=== PATIENT | female | born 2005 | race Hispanic/Latino ===

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

== ENCOUNTER 2023-01-22 18:22 | Emergency (ER) | payer OTHER, MEDICAID, SELFPAY ==
[2023-01-22 18:26] VITALS: BP 135/78; PULSE 65; RESP 16; TEMP 36.6; O2SAT 99; BMI 38.6
--- NOTE | 2023-01-22 21:32 | ED.FEMALEGU ---
HPI - Female Genitourinary General Chief complaint: Urogenital-Female Stated complaint: Poss bladder inf Time Seen by Provider: 01/22/23 19:53 Source: patient Mode of arrival: Ambulatory History of Present Illness HPI Narrative: 17-year-old female without significant medical history presents with a chief complaint of dysuria, frequency and urgency since yesterday. She has some low back pain today. She denies any fever or chills nor nausea or vomiting. She has no vaginal bleeding or discharge. She is had urinary tract infections in the past and feels like this is the same Related Data Previous Rx's Medication Instructions Recorded albuterol sulfate 90 mcg/actuation 2 puff INH Q4HP PRN #1 ea 08/22/17 aerosol inhaler (Ventolin HFA) dextroamphetamine-amphetamine ER 30 mg PO DAILY #30 caps 03/11/18 30 mg 24hr capsule,extend release (Adderall XR) cephalexin 500 mg capsule 500 mg PO Q6H 7 days #28 caps 01/22/23 Allergies Allergy/AdvReac Type Severity Reaction Status Date / Time No Known Drug Allergies Allergy Verified 01/22/23 22:29 Review of Systems Review of Systems Narrative: GENERAL: Denies chills, fatigue, malaise, fever, sweats. HEENT: Denies sinus pain, ear pain, sore throat, difficulty swallowing, dizziness. RESPIRATORY: Denies dyspnea, cough, wheezing, hemoptysis, sputum. CARDIOVASCULAR: Denies chest pain, palpitations, orthopnea, edema, GASTROINTESTINAL: Denies nausea, vomiting, abdominal pain, diarrhea, constipation, melena. : See HPI MUSCULOSKELETAL: denies weakness, joint pain, or bony pain SKIN: Denies rash, skin lesions, or other NEUROLOGIC: Denies weakness, headache, numbness, change in speech, confusion, seizures, incoordination. PSYCHIATRIC: No concerning psychosocial issues. 12 point review of systems is negative except for those stated above Patient History Family History Brother Oppositional defiant disorder of childhood or adolescence ADHD Mother Obesity Anxiety Substance Use Type: marijuana Exam Narrative Exam Narrative: GEN: 17-year-old female AOx3 and in mild distress EYES: Pupils are equal, round, and reactive to light and accommodation. Extraoccular muscles are intact bilaterally. There is no subconjunctival hemorrhage or exudate. CHEST: Lungs are clear to auscultation bilaterally and free of wheezes, rales, or rhonchi. Heart rate is regular rhythm, there are no murmurs, clicks, rubs, or gallops. There is no chest wall tenderness. ABD: Abdomen is soft and nontender. There is no guarding or rebound. Bowel sounds are normal in all 4 quadrants. There is no mass or organomegaly. Mild left sided CVA tenderness EXT: Full painless ROM of all extremities with no loss of sensation or strength. SKIN: Warm, pink, and dry. No erythema or rash Initial Vital Signs Initial Vital Signs: Vital Signs Temperature 97.8 F 01/22/23 18:26 Pulse Rate 65 01/22/23 18:26 Respiratory Rate 16 01/22/23 18:26 Blood Pressure 135/78 01/22/23 18:26 Pulse Oximetry 99 01/22/23 18:26 Oxygen Delivery Method Room Air 01/22/23 18:26 Course Orders Ordered: ED Orders 01/22/23 21:30 Urine Culture Stat Urine Microscopic Stat Discontinued Medications Cefazolin Sodium (Cephalexin 250 Mg Cap Prepack) 1 bottle MISC SEEINSTR ONE Stop: 01/22/23 22:31 Last Admin: 01/22/23 22:50 Dose: 1 bottle Documented By: Ondansetron HCl (Ondansetron 4 Mg Odt Prepack) 1 bottle MISC SEEINSTR ONE Stop: 01/22/23 22:31 Last Admin: 01/22/23 22:50 Dose: 1 bottle Documented By: Vital Signs Vital signs: Vital Signs - 8 hr 01/22/23 22:04 Pulse Rate 55 L Respiratory Rate 16 Blood Pressure 119/67 Pulse Oximetry 100 Oxygen Delivery Method Room Air MDM - Female Genitourinary Lab Data Labs: Lab Results 01/22/23 Range/Units 21:30 Urine RBC None seen (0-5/HPF) Urine WBC 10-30/hpf H (0-5/HPF) Ur Squamous Epith Cells 0-1 /hpf (0-5/HPF) Urine Bacteria Many (>30) H (None) Urine Mucus 3+ H (Negative) Ur Culture Indicated? Specimen cultured Point of Care Testing Test Results Negative Urine Dip Bedside Urine Glucose Negative Bedside Urine Bilirubin - Negative Bedside Urine Ketone +/- 5 Urine Specific [place] 1.03 Bedside Urine Occult Blood - Negative Bedside Urine Protein + 30 Bedside Urine Urobilinogen - Negative Bedside Urine Nitrite + Positive Bedside Urine Leukocytes ++ 125 Esterase MDM Narrative Medical decision making narrative: 17-year-old female with dysuria, frequency and urgency and some low back pain has urine convincing for UTI. Other diagnoses considered including kidney stone versus PID versus other. She has no blood in her urine and the pain is not colicky in nature but persistent. She has no vaginal bleeding or discharge. Patient shows no signs of sepsis is generally well-appearing and appropriate for discharge. Questions have been answered to her apparent satisfaction and return precautions discussed including worsening pain, fever, shaking chills, vomiting or other concerning symptoms. Discharge Plan Departure Patient Disposition: Home Clinical Impression: UTI (urinary tract infection) Instructions: DI for Urinary Tract Infection (UTI) Activity Restrictions/Additional Instructions: *You have been diagnosed with [UTI ] *What to do: *Please continue to take your regular medications as directed. [x ] New medication prescriptions sent to your pharmacy: [[facility]] [ ] New medication written as a paper prescription [ ] No new medications given *Please follow up with your primary care provider in 2-3 days, call for an appointment. Let them know you were seen in the Emergency Department and that we ask that you be seen in follow up. We will electronically transmit a record of today's note if your PCP is in our system *If you do not have a primary care provider please contact the [facility] Resource line at [phone]. They will ask some questions about your medical history and help get you set up with a doctor in the community. *Return to Emergency Department if you should have any new, worsening or concerning symptoms, such as [fever greater than 101 F, shaking chills, worsening pain, persistent vomiting or other bothersome symptoms] Prescriptions: New cephalexin 500 mg capsule 500 mg PO Q6H 7 Days Qty: 28 0RF No Action albuterol sulfate [Ventolin HFA] 90 MCG/PUFF HFA aerosol inhaler 2 puff INH Q4HP PRNQty: 1 3RF dextroamphetamine-amphetamine [Adderall XR] 30 mg capsule,extended release 24hr 30 mg PO DAILY Qty: 30 0RF Referrals: Tammie Whitehead DO [Primary Care Provider] - Stand Alone Forms: Patient Portal/API
[2023-01-22 21:56] LABS: Bacteria Urine Many (>30); Culture Indicated Urine Specimen Cultured; Mucus Urine 3+ (Negative); RBC Urine None Seen (0-5/HPF); Squamous Epithelial Cell Urine 0-1 /HPF (0-5/HPF); WBC Urine 10-30/HPF (0-5/HPF)
[2023-01-22 22:04] VITALS: BP 119/67; PULSE 55; RESP 16; O2SAT 100
[2023-01-22] MEDS: ONDANSETRON 4 MG ODT PREPACK 1 BOTTLE MISC (22:50)
[2023-01-22] MEDS: cephALEXin 250 MG CAP PREPACK 1 BOTTLE MISC (22:50)
== END 2023-01-22 22:56 | disposition home or self-care (01) ==
PROVIDERS: Emergency Provider Emergency Medicine; PCP Family Medicine
DX: N39.0 Urinary tract infection, site not specified (principal)
CPT/HCPCS: 81003; 81015; 81025; 87077; 87086; 87186; 99282; 99283

== ENCOUNTER 2023-06-19 19:53 | Emergency (ER) | payer SELFPAY ==
[2023-06-19 19:56] VITALS: BP 127/68; PULSE 69; RESP 18; TEMP 36.8; O2SAT 99; BMI 36.9
[2023-06-19] MEDS: ONDANSETRON 4 MG ODT SL (20:02)
[2023-06-19 21:54] LABS: Bacteria Urine Occasional (0-1); Culture Indicated Urine Cult Not Indicated; Mucus Urine 4+ (Negative); RBC Urine None Seen (0-5/HPF); Squamous Epithelial Cell Urine 1-5 /HPF (0-5/HPF); WBC Urine 0-1/HPF (0-5/HPF)
--- NOTE | 2023-06-19 22:49 | ED.NAVMDI ---
HPI - Nausea/Vomiting/Diarrhea General Chief complaint: Nausea/Vomiting/Diarrhea Stated complaint: 8 weeks , unable to keep things down Time Seen by Provider: 06/19/23 22:32 Source: patient Mode of arrival: Ambulatory History of Present Illness HPI Narrative: 8 week young woman 18-year-old who comes to the ED with frequent nausea and vomiting. No abdominal pain, no dysuria urgency or frequency. No vaginal bleeding. No flank pain. Related Data Previous Rx's Medication Instructions Recorded albuterol sulfate 90 mcg/actuation 2 puff INH Q4HP PRN #1 ea 08/22/17 aerosol inhaler (Ventolin HFA) dextroamphetamine-amphetamine ER 30 mg PO DAILY #30 caps 03/11/18 30 mg 24hr capsule,extend release (Adderall XR) promethazine 25 mg rectal 25 mg NC Q6H PRN nausea and 06/19/23 suppository vomiting #10 ea promethazine 25 mg tablet 25 mg PO Q6H nausea and vomiting 06/19/23 #20 tabs Allergies Allergy/AdvReac Type Severity Reaction Status Date / Time No Known Drug Allergies Allergy Verified 06/19/23 19:56 Patient History Family History Brother Oppositional defiant disorder of childhood or adolescence ADHD Mother Obesity Anxiety Social History Smoking Status: Never smoker Smoking Status: Never smoker Substance Use Type: marijuana Exam Narrative Exam Narrative: GENERAL: Alert, cooperative and in no distress. HEAD: Atraumatic. Normocephalic. EYES: Sclera are clear without icterus. Extraocular movements are full. ENT: No rhinorrhea. Oropharynx is moist. Mouth exam is benign. NECK: Supple. Full range of motion. CARDIOVASCULAR: Normal rate and rhythm without murmur gallop or rub. RESPIRATORY: Clear to auscultation. Breath sounds equal bilaterally. No wheezes, rales, or rhonchi. GASTROINTESTINAL: Abdomen soft, non-tender, nondistended. EXTREMITIES: No edema, full range of motion. No obvious trauma. BACK: Normal inspection, no CVA tenderness. NEURO: Nonfocal examination, normal speech SKIN: No rash or erythema of visible areas PSYCH: Normally oriented. Normal range of affect. Appropriate behavior Initial Vital Signs Initial Vital Signs: Vital Signs Temperature 98.2 F 06/19/23 19:56 Pulse Rate 69 12/19/23 19:56 Respiratory Rate 18 06/19/23 19:56 Blood Pressure 127/68 06/19/23 19:56 Pulse Oximetry 99 06/19/23 19:56 Oxygen Delivery Method Room Air 06/19/23 19:56 Course Orders Ordered: ED Orders 06/19/23 21:14 Urine Microscopic Stat Ondansetron HCl (Ondansetron 4 Mg Odt) 4 mg SL NOW PRN PRN Reason: Nausea And Vomiting Last Admin: 06/19/23 20:02 Dose: 4 mg Documented By: HUNTER Ondansetron HCl (Ondansetron 4 Mg/2 Ml Inj) 4 mg IV NOW PRN PRN Reason: Nausea And Vomiting Discontinued Medications Promethazine HCl (Promethazine 25 Mg Supp) 25 mg NC NOW ONE Stop: 06/19/23 22:45 Vital Signs Vital signs: Vital Signs - 8 hr 06/19/23 19:56 Temperature 98.2 F Pulse Rate 69 Respiratory Rate 18 Blood Pressure 127/68 Pulse Oximetry 99 Oxygen Delivery Method Room Air MDM - Nausea/Vomiting/Diarrhea Lab Data Labs: Lab Results 06/19/23 Range/Units 21:14 Urine RBC None seen (0-5/HPF) Urine WBC 0-1/hpf (0-5/HPF) Ur Squamous Epith Cells 1-5 /hpf (0-5/HPF) Urine Bacteria Occasional (0-1) (None) Urine Mucus 4+ H (Negative) Ur Culture Indicated? Cult not indicated Point of Care Testing Test Results Positive Urine Dip Bedside Urine Glucose Negative Bedside Urine Bilirubin - Negative Bedside Urine Ketone ++ 40 Urine Specific [place] 1.005 Bedside Urine Occult Blood - Negative Bedside Urine pH 8.5 Bedside Urine Protein +/- 15 Bedside Urine Urobilinogen - Negative Bedside Urine Nitrite - Negative Bedside Urine Leukocytes - Negative Esterase MDM Narrative Medical decision making narrative: Patient appears well. I did do orthostatic vital signs at the bedside. Her resting heart rate was 60 and when I sitter at the bedside she was 78. She is moist mucous membranes and brisk capillary refill distally. She is mentating well. I do not think she needs IV fluids at the moment. Discharge Plan Departure Patient Disposition: Home Clinical Impression: Hyperemesis gravidarum Instructions: DI for Hyperemesis Gravidarum Activity Restrictions/Additional Instructions: Use promethazine 25 mg either orally or rectally every 6 hours as needed for nausea. Eat frequent high-protein meals that are very small particularly before you get out of the bed in the morning as this often helps. I recommend an electrolyte fluids such as a qt of water combined with a 1/2 tsp of sugar and a pinch of salt for hydration fluid I recommend small sips of fluid very frequently to keep yourself hydrated. Return to the ED if you think you are getting dangerously dehydrated or for other severe symptoms. Prescriptions: New promethazine 25 mg tablet 25 mg PO Q6H Qty: 20 0RF promethazine 25 mg suppository 25 mg NC Q6H PRN (Reason: nausea and vomiting) Qty: 10 0RF No Action albuterol sulfate [Ventolin HFA] 90 MCG/PUFF HFA aerosol inhaler 2 puff INH Q4HP PRNQty: 1 3RF dextroamphetamine-amphetamine [Adderall XR] 30 mg capsule,extended release 24hr 30 mg PO DAILY Qty: 30 0RF Referrals: Tammie Whitehead DO [Primary Care Provider] - Stand Alone Forms: Patient Portal/API
[2023-06-19] MEDS: PROMETHAZINE 25 MG SUPP PR (23:10)
[2023-06-19 23:15] VITALS: BP 119/56; PULSE 85; RESP 18; TEMP 37.2; O2SAT 99
== END 2023-06-19 23:15 | disposition home or self-care (01) ==
PROVIDERS: Emergency Provider Family Medicine Addiction Medicine; PCP Family Medicine
DX: O21.0 Mild hyperemesis gravidarum (principal); Z3A.08 8 weeks gestation of pregnancy
CPT/HCPCS: 81003; 81015; 81025; 99282; 99283

== ENCOUNTER 2023-06-29 13:28 | Emergency (ER) | payer OTHER, MEDICAID, SELFPAY ==
[2023-06-29 13:39] VITALS: BP 142/67; PULSE 70; RESP 14; TEMP 36.7; O2SAT 99; BMI 36.6
--- NOTE | 2023-06-29 14:04 | DI.US.S_ITS ---
PROCEDURE: US OB <= 14 WEEKS FETUS INDICATIONS: NAUSEA/VOMITING/DIARRHEA. UPPER ABDOMINAL PAIN BILATERAL RADIATING INTO MID PELVIS. OUTSIDE/PRIOR DATING DATA: Last menstrual period (LMP): 04/22/23 LMP-based estimated date of delivery (SHANTI): 01/27/24. First dating scan (date and location): This study. Estimated date of delivery (SHANTI) from first dating scan: 02/01/24. The calculations are made using the above SHANTI of 02/01/24. TECHNIQUE: Real-time scanning was performed of the fetus and maternal pelvic organs, with image documentation. Endovaginal scanning was also performed to better visualize the fetus and maternal ovaries. COMPARISON: None. FINDINGS: Embryo: Single living intrauterine gestation with heart rate 173 beats per minute, and a crown-rump length of 2.3 cm which correlates with a gestational age of 9 weeks 0 days, +/-5 days. A small presumed perigestational bleed is present measuring only 7 x 15 x 18 mm. Heart rate: 173 beats per minute Maternal organs: Ovaries normal considering gestational status. IMPRESSION: Single living intrauterine gestation with delivery date projected to be centered on 02/01/24, We strive to produce accurate, complete, and clear reports of imaging services. To assist us in improving patient care, this report was composed using standard report templates and voice recognition software. Therefore, it may contain abnormal punctuation, insertions and/or omissions. Occasional wrong-word or sound-alike substitutions may occur. Though we review the report and make efforts to correct it, we do recommend that the report be read carefully in proper context to recognize any text inaccuracies. Dictated by: Jose Perez M.D. on 06/29/2023 at 15:41 Approved by: Jose Perez M.D. on 06/29/2023 at 15:43
[2023-06-29 14:35] LABS: Add Manual Diff / Slide Review NO; Basophils Absolute Auto 0 /uL (0-100); Basophils Percent Auto 0.2 % (0-2); Eosinophils Absolute Auto 0 /uL (0-450); Eosinophils Percent Auto 0.2 % (2-4); Hematocrit 40.7 % (36-46); Hemoglobin 13.9 g/dL (12.0-16.0); Lymphocytes Absolute Auto 1000 /uL (1100-4500); Lymphocytes Percent Auto 5.8 % (25-40); Mean Corpuscular HGB Conc 34.1 % (30-36); Mean Corpuscular Hemoglobin 31.3 PG (26-34); Mean Corpuscular Volume 91.8 fL (80-100); Monocytes Absolute Auto 700 /uL (0-900); Monocytes Percent Auto 3.9 % (3-14); Neutrophils Absolute Auto 15400 /uL (1500-7000); Neutrophils Percent Auto 89.9 % (50-75); Platelet Count 244 X10^3/uL (150-400); Red Blood Cell Count 4.43 X10^6/uL (4.0-5.2); Red Cell Distribution Width 12.9 % (11.6-14.8); White Blood Cell Count 17.2 X10^3/uL (4.5-11.0)
[2023-06-29 14:52] LABS: Alanine Aminotransferase 18 IU/L (<35); Albumin 4.3 g/dL (3.5-5.0); Albumin Globulin Ratio 1.1 (1.0-2.8); Alkaline Phosphatase 68 U/L (38-126); Aspartate Aminotransferase 30 IU/L (14-36); BUN Creatinine Ratio 16.2 (6-22); Bilirubin Total 0.7 mg/dL (0.2-1.3); Blood Urea Nitrogen 6 mg/dL (7-17); Calcium 9.7 mg/dL (8.4-10.2); Carbon Dioxide 17 mmol/L (22-32); Chloride 106 mmol/L (98-107); Estimated Glomerular Filt Rate > 60 mL/min (>60); Globulin 3.8 g/dL (1.7-4.1); Glucose 92 mg/dL (70-100); Potassium 4.1 mmol/L (3.4-5.1); Sodium 133 mmol/L (137-145); Total Protein 8.1 g/dL (6.3-8.2)
--- NOTE | 2023-06-29 15:29 | ED_ITS ---
HPI - <Krystle Moise PA-C - Last Filed: 06/29/23 20:03> General Chief complaint: Abdominal Pain Stated complaint: Having cramping pain 9 weeks Time Seen by Provider: 06/29/23 15:21 Source: patient Mode of arrival: Ambulatory Limitations: no limitations History of Present Illness HPI Narrative: 18-year-old female 9 weeks LMP 04/22/23 presents with concern for intermittent upper abdominal pain. Patient states that since yesterday she has been having sharp intermittent pains that start up high in her abdomen under her ribs on both sides and has a sensation that they are shooting down the middle of her abdomen towards her pelvis. She says that these seem to last for a few seconds at a time usually not longer. She was dealing with pretty significant nausea and vomiting in her but this seemed to improve for about a week until a few days ago when she started having nausea and vomiting again. She states that this morning she started having diarrhea and has had 3 or 4 episodes of this with very loose and watery stool. She has not seen blood or mucus in it. She has been dealing with some nausea and difficulty keeping food or fluids down today she has had 2 episodes of vomiting. She has been able to take small sips of fluids and has been eating some crackers with success. She had 1 episode of vomiting when she 1st was in the waiting room in the emergency department. Other family members have had illness recently with vomiting and diarrhea in the last few days. She denies fevers, flank pain, urgency frequency burning with urination, persistent abdominal pain, pelvic pain, vaginal bleeding or any other symptoms. She states she had her 1st OB ultrasound last week and was told things looked okay with a HR in [id number]. Related Data Previous Rx's Medication Instructions Recorded albuterol sulfate 90 mcg/actuation 2 puff INH Q4HP PRN #1 ea 08/22/17 aerosol inhaler (Ventolin HFA) dextroamphetamine-amphetamine ER 30 mg PO DAILY #30 caps 03/11/18 30 mg 24hr capsule,extend release (Adderall XR) promethazine 25 mg rectal 25 mg KY Q6H PRN nausea and 06/19/23 suppository vomiting #10 ea promethazine 25 mg tablet 25 mg PO Q6H nausea and vomiting 06/19/23 #20 tabs promethazine 25 mg rectal 25 mg KY Q6H PRN nausea and 06/21/23 suppository vomiting #12 ea Allergies Allergy/AdvReac Type Severity Reaction Status Date / Time No Known Drug Allergies Allergy Verified 06/29/23 13:44 Review of Systems <Krystle Moise PA-C - Last Filed: 06/29/23 20:03> Review of Systems Narrative: See HPI Exam <Krystle Moise PA-C - Last Filed: 06/29/23 20:03> Narrative Exam Narrative: GENERAL: [18] year old patient appears stated age. Obese patient, in mild distress. HEAD: Atraumatic. Normocephalic. EYES: Pupils equal round and reactive. Extraocular motions intact. No scleral icterus. No injection or drainage. ENT: Nose without bleeding, purulent drainage. Airway patent. NECK: Trachea midline. Non tender CARDIOVASCULAR: Regular rate and rhythm without murmurs, gallops, or rubs. RESPIRATORY: Clear to auscultation. Breath sounds equal bilaterally. No wheezes, rales, or rhonchi. GASTROINTESTINAL: Abdomen soft, there is mild generalized upper abdominal tenderness bilaterally and of the epigastrum. Otherwise abdomen is non-tender, nondistended, negative caban's sign and rovsing, no mcburney's point tenderness or suprapubic tenderness. No CVA/flank tenderness. EXTREMITIES: No edema or joint tenderness. BACK: Nontender without deformity or crepitance. No flank tenderness. NEURO: AOx3. SKIN: No rash or erythema of visible areas Initial Vital Signs Initial Vital Signs: Vital Signs Temperature 98.0 F 06/29/23 13:39 Pulse Rate 70 06/29/23 13:39 Respiratory Rate 14 06/29/23 13:39 Blood Pressure 142/67 H 06/29/23 13:39 Pulse Oximetry 99 06/29/23 13:39 Oxygen Delivery Method Room Air 06/29/23 13:39 <Marily Michele MD - Last Filed: 07/01/23 02:37> Initial Vital Signs Initial Vital Signs: Vital Signs Temperature 98.0 F 06/29/23 13:39 Pulse Rate 70 06/29/23 13:39 Respiratory Rate 14 06/29/23 13:39 Blood Pressure 142/67 H 06/29/23 13:39 Pulse Oximetry 99 06/29/23 13:39 Oxygen Delivery Method Room Air 06/29/23 13:39 Course <Krystle Moise PA-C - Last Filed: 06/29/23 20:03> Course Course Narrative: Did call the patient and advise her the results of her viral panel which were negative. All questions answered. 1919 Orders Ordered: ED Orders 06/29/23 14:04 US OB <= 14 weeks fetus Stat 06/29/23 14:20 ABO RH Type Stat Complete Blood Count AUTO DIFF Stat Comprehensive Metabolic Panel Stat HCG Quantitative /Beta subunit Stat 06/29/23 15:50 Respiratory Panel (Film Array) Stat Vital Signs Vital signs: Vital Signs - 8 hr 06/29/23 13:39 06/29/23 16:01 06/29/23 17:32 Temperature 98.0 F 98.1 F 98.3 F Pulse Rate 70 77 83 Respiratory Rate 14 20 18 Blood Pressure 142/67 H 121/76 119/69 Pulse Oximetry 99 100 98 Oxygen Delivery Method Room Air Room Air Room Air <Marily Michele MD - Last Filed: 07/01/23 02:37> Orders Ordered: ED Orders 06/29/23 14:04 US OB <= 14 weeks fetus Stat 06/29/23 14:20 ABO RH Type Stat Complete Blood Count AUTO DIFF Stat Comprehensive Metabolic Panel Stat HCG Quantitative /Beta subunit Stat 06/29/23 15:50 Respiratory Panel (Film Array) Stat Vital Signs Vital signs: Vital Signs - 8 hr 06/29/23 13:39 06/29/23 16:01 06/29/23 17:32 Temperature 98.0 F 98.1 F 98.3 F Pulse Rate 70 77 83 Respiratory Rate 14 20 18 Blood Pressure 142/67 H 121/76 119/69 Pulse Oximetry 99 100 98 Oxygen Delivery Method Room Air Room Air Room Air MDM - OB/Uterine Contractions <Krystle Moise PA-C - Last Filed: 06/29/23 20:03> Differential Diagnosis Differential diagnosis: Likely other (round ligament pain, viral gastroenteritis, nausea and vomiting of , less likely appendicitis, cholelithiasis, biliary colic ) Medical Records Attestation: I reviewed the patient's medical records. Lab Data Attestation: I reviewed the patient's lab results. 06/29/23 14:20 06/29/23 14:20 Labs: Lab Results 06/29/23 06/29/23 Range/Units 14:20 15:50 WBC 17.2 H (4.5-11.0) X10^3/uL RBC 4.43 (4.0-5.2) X10^6/uL Hgb 13.9 (12.0-16.0) g/dL Hct 40.7 (36-46) % MCV 91.8 (80-100) fL MCH 31.3 (26-34) PG MCHC 34.1 (30-36) % RDW 12.9 (11.6-14.8) % Plt Count 244 (150-400) X10^3/uL Neut % (Auto) 89.9 H (50-75) % Lymph % (Auto) 5.8 L (25-40) % [place] % (Auto) 3.9 (3-14) % Eos % (Auto) 0.2 L (2-4) % Baso % (Auto) 0.2 (0-2) % Neut # (Auto) 82850 H (4050-4727) /uL Lymph # (Auto) 1000 L (2525-3147) /uL [place] # (Auto) 700 (0-900) /uL Eos # (Auto) 0 (0-450) /uL Baso # (Auto) 0 (0-100) /uL Sodium 133 L (137-145) mmol/L Potassium 4.1 (3.4-5.1) mmol/L Chloride 106 (98-107) mmol/L Carbon Dioxide 17 L (22-32) mmol/L BUN 6 L (7-17) mg/dL Creatinine 0.37 L (0.52-1.04) mg/dL Estimated GFR > 60 (>60) mL/min BUN/Creatinine Ratio 16.2 (6-22) Glucose 92 (70-100) mg/dL Calcium 9.7 (8.4-10.2) mg/dL Total Bilirubin 0.7 (0.2-1.3) mg/dL AST 30 (14-36) IU/L ALT 18 (<35) IU/L Alkaline Phosphatase 68 (38-126) U/L Total Protein 8.1 (6.3-8.2) g/dL Albumin 4.3 (3.5-5.0) g/dL Globulin 3.8 (1.7-4.1) g/dL Albumin/Globulin Ratio 1.1 (1.0-2.8) HCG, Quant 36345 mIU/mL Chlamy pneumoniae PCR Not detected (Not Detect) Adenovirus (PCR) Not detected (Not Detect) B.parapertussis DNA PCR Not detected (Not Detecte) Coronavirus OC43 (PCR) Not detected (Not Detect) Coronavirus HKU1 (PCR) Not detected (Not Detect) Coronavirus 229E (PCR) Not detected (Not Detect) SARS-CoV-2 (PCR) Not detected (Not Detecte) Coronavirus NL63 (PCR) Not detected (Not Detect) Human Metapneumovir PCR Not detected (Not Detect) Influenza Type A (PCR) Not detected (Not Detect) Influenza Type B (PCR) Not detected (Not Detect) M. pneumoniae (PCR) Not detected (Not Detect) Parainfluenza 1 (PCR) Not detected (Not Detect) Parainfluenza 2 (PCR) Not detected (Not Detect) Parainfluenza 3 (PCR) Not detected (Not Detect) Parainfluenza 4 (PCR) Not detected (Not Detect) RSV (PCR) Not detected (Not Detect) Entero/Rhino (PCR) Not detected (Not Detect) Blood Type O Positive Urine Dip Bedside Urine Glucose Negative Bedside Urine Bilirubin - Negative Bedside Urine Ketone +/- 5 Urine Specific [place] 1.025 Bedside Urine Occult Blood - Negative Bedside Urine pH 6.0 Bedside Urine Protein - Negative Bedside Urine Urobilinogen - Negative Bedside Urine Nitrite - Negative Bedside Urine Leukocytes - Negative Esterase Imaging Data US - OB: My Impression: Agree with Radiology interpretation Radiologist's Impression: [place] [id number] Ultrasound Report Signed Patient: Eufemia Betancourt MR#: [id number] : 2005 Acct:[id number] Age/Sex: 18 / F Date of Service: 06/29/23 Loc: ED Accession Number: [id number] Procedure: US OB <= 14 weeks fetus Ordering Provider: Marily Michele MD PROCEDURE: US OB <= 14 WEEKS FETUS INDICATIONS: NAUSEA/VOMITING/DIARRHEA. UPPER ABDOMINAL PAIN BILATERAL RADIATING INTO MID PELVIS. OUTSIDE/PRIOR DATING DATA: Last menstrual period (LMP): 04/22/23 LMP-based estimated date of delivery (SHANTI): 01/27/24. First dating scan (date and location): This study. Estimated date of delivery (SHANTI) from first dating scan: 02/01/24. The calculations are made using the above SHANTI of 02/01/24. TECHNIQUE: Real-time scanning was performed of the fetus and maternal pelvic organs, with image documentation. Endovaginal scanning was also performed to better visualize the fetus and maternal ovaries. COMPARISON: None. FINDINGS: Embryo: Single living intrauterine gestation with heart rate 173 beats per minute, and a crown-rump length of 2.3 cm which correlates with a gestational age of 9 weeks 0 days, +/-5 days. A small presumed perigestational bleed is present measuring only 7 x 15 x 18 mm. Heart rate: 173 beats per minute Maternal organs: Ovaries normal considering gestational status. IMPRESSION: Single living intrauterine gestation with delivery date projected to be centered on 02/01/24, We strive to produce accurate, complete, and clear reports of imaging services. To assist us in improving patient care, this report was composed using standard report templates and voice recognition software. Therefore, it may contain abnormal punctuation, insertions and/or omissions. Occasional wrong-word or sound-alike substitutions may occur. Though we review the report and make efforts to correct it, we do recommend that the report be read carefully in proper context to recognize any text inaccuracies. Dictated by: Jose Perez M.D. on 06/29/2023 at 15:41 Approved by: Jose Perez M.D. on 06/29/2023 at 15:43 Treatment and disposition Shared decision making:: Shared decision-making was used in determining plan for evaluation today in the emergency department and plan for outpatient follow- up/return precautions [facility] Narrative Medical decision making narrative: This is a well appearing 18yo F 9 weeks who presents with concern for upper mid abdominal pains in the last 24-48 hours lasting a few seconds at a time with some associated nausea and vomiting since yesterday and some diarrhea today, in the context of multiple family members having vomiting and diarrhea symptoms (3 loose stools today) recently. Patient had a ultrasound last week at her OB appointment which she reports was normal. Repeat ultrasound today shows a live fetus at 9 weeks with heart rate of 173, a small perigestational bleed approximately 1 x 1.5 cm. Patient's abdominal exam and exam of her flanks does not suggest pyelonephritis, appendicitis, cholelithiasis/gallbladder problem or other intra-abdominal or surgical pathology. Her labs are notable for leukocytosis to 17.2, however she has had vomiting recently and also is which certainly could account for this. Her vitals today are unremarkable she is afebrile. She was able to tolerate regular frequent sips of fluids and crackers while in the ER without any repeat episodes of vomiting or recurrence of pain. Hx is Fairly suspicious for a viral gastroenteritis, did discharge the patient prior to return of viral panel due to machine breakdown in the lab and expected delay in return of this result. Consulted/called the patient after she was discharged to share the results with her. Her viral panel was negative, and she was again counseled by phone to monitor carefully for any new or worsening symptoms particularly if she is developing a fever or has persistent diarrhea or worsening or persistent abdominal pain. Notably her abdominal pain symptoms were quite intermittent and lasting only for a few seconds, also bilateral and thus I strongly suspect they may be related to her , possibly round ligament pain. Patient's urine was unremarkable, and no suspicion for UTI based on this and based on exam. Her liver enzymes were not elevated and right upper quadrant ultrasound was not pursued. A pelvic exam was not performed as patient had no low abdominal/pelvic pain and no vaginal bleeding also with an live fetus on OB ultrasound at 9 weeks size which corresponds to [place]. HCG was within normal range for her stage of at just under 100,000. Patient was given strict return precautions for e.d. recheck, advised otherwise to have close follow-up with PCP/OB. All questions answered. <Marily Michele MD - Last Filed: 07/01/23 02:37> Lab Data Labs: Lab Results 06/29/23 06/29/23 Range/Units 14:20 15:50 WBC 17.2 H (4.5-11.0) X10^3/uL RBC 4.43 (4.0-5.2) X10^6/uL Hgb 13.9 (12.0-16.0) g/dL Hct 40.7 (36-46) % MCV 91.8 (80-100) fL MCH 31.3 (26-34) PG MCHC 34.1 (30-36) % RDW 12.9 (11.6-14.8) % Plt Count 244 (150-400) X10^3/uL Neut % (Auto) 89.9 H (50-75) % Lymph % (Auto) 5.8 L (25-40) % [place] % (Auto) 3.9 (3-14) % Eos % (Auto) 0.2 L (2-4) % Baso % (Auto) 0.2 (0-2) % Neut # (Auto) 97843 H (3403-0032) /uL Lymph # (Auto) 1000 L (1605-2681) /uL [place] # (Auto) 700 (0-900) /uL Eos # (Auto) 0 (0-450) /uL Baso # (Auto) 0 (0-100) /uL Sodium 133 L (137-145) mmol/L Potassium 4.1 (3.4-5.1) mmol/L Chloride 106 (98-107) mmol/L Carbon Dioxide 17 L (22-32) mmol/L BUN 6 L (7-17) mg/dL Creatinine 0.37 L (0.52-1.04) mg/dL Estimated GFR > 60 (>60) mL/min BUN/Creatinine Ratio 16.2 (6-22) Glucose 92 (70-100) mg/dL Calcium 9.7 (8.4-10.2) mg/dL Total Bilirubin 0.7 (0.2-1.3) mg/dL AST 30 (14-36) IU/L ALT 18 (<35) IU/L Alkaline Phosphatase 68 (38-126) U/L Total Protein 8.1 (6.3-8.2) g/dL Albumin 4.3 (3.5-5.0) g/dL Globulin 3.8 (1.7-4.1) g/dL Albumin/Globulin Ratio 1.1 (1.0-2.8) HCG, Quant 77193 mIU/mL Chlamy pneumoniae PCR Not detected (Not Detect) Adenovirus (PCR) Not detected (Not Detect) B.parapertussis DNA PCR Not detected (Not Detecte) Coronavirus OC43 (PCR) Not detected (Not Detect) Coronavirus HKU1 (PCR) Not detected (Not Detect) Coronavirus 229E (PCR) Not detected (Not Detect) SARS-CoV-2 (PCR) Not detected (Not Detecte) Coronavirus NL63 (PCR) Not detected (Not Detect) Human Metapneumovir PCR Not detected (Not Detect) Influenza Type A (PCR) Not detected (Not Detect) Influenza Type B (PCR) Not detected (Not Detect) M. pneumoniae (PCR) Not detected (Not Detect) Parainfluenza 1 (PCR) Not detected (Not Detect) Parainfluenza 2 (PCR) Not detected (Not Detect) Parainfluenza 3 (PCR) Not detected (Not Detect) Parainfluenza 4 (PCR) Not detected (Not Detect) RSV (PCR) Not detected (Not Detect) Entero/Rhino (PCR) Not detected (Not Detect) Blood Type O Positive Urine Dip Bedside Urine Glucose Negative Bedside Urine Bilirubin - Negative Bedside Urine Ketone +/- 5 Urine Specific [place] 1.025 Bedside Urine Occult Blood - Negative Bedside Urine pH 6.0 Bedside Urine Protein - Negative Bedside Urine Urobilinogen - Negative Bedside Urine Nitrite - Negative Bedside Urine Leukocytes - Negative Esterase Discharge Plan Departure Patient Disposition: Home Clinical Impression: Abdominal cramping affecting Nausea & vomiting Qualifiers: Vomiting type: unspecified Qualified Code(s): R11.2 - Nausea with vomiting, unspecified Diarrhea Qualifiers: Diarrhea type: unspecified type Qualified Code(s): R19.7 - Diarrhea, unspecified Activity Restrictions/Additional Instructions: *You have been diagnosed with [possible viral gastroenteritis] *What to do: *Please continue to take your regular medications as directed. [ ] New medication prescriptions sent to your pharmacy: [ ] [ ] New medication written as a paper prescription [X ] No new medications given *Please follow up with your primary care provider in 2-3 days, call for an appointment. Let them know you were seen in the Emergency Department and that we ask that you be seen in follow up. We will electronically transmit a record of today's note if your PCP is in our system. Your ultrasound today was looking okay, her baby's heart rate was at 173, you did have a small perigestational bleed about 1.5 cm x 8 mm. I do not think that this perigestational bleed explains your abdominal cramping and your other symptoms. Unfortunately our viral panel could not be completed during her emergency department stay as our machine is down and will not be up and running for another couple of hours. Based on your exam I am less suspicious for appendicitis or a gallbladder problem. I do think that you probably have a viral illness with your symptoms of vomiting and diarrhea today, given that other people in your home have had similar symptoms. Thankfully you have been able to keep some fluids down, you can continue to use the promethazine if needed, hydration is the most important thing but do eat what you can. It is okay to take popsicles, juices or electrolyte or Pedialyte solutions to make sure your staying hydrated but also plain water is good too. We are going to give you a call with the results once we receive them for your viral panel. Whether or not this shows something positive that could account for your symptoms it is very important that you carefully monitor your symptoms over the next 24-48 hours and if you develop fevers or have persistent diarrhea and vomiting or worsening or constant abdominal pains or develop vaginal bleeding or any other symptoms of concern please make sure that you seek re-evaluation, otherwise follow up with your primary care provider/OB provider. *If you do not have a primary care provider please contact the [facility] Resource line at [phone]. They will ask some questions about your medical history and help get you set up with a doctor in the community. *Return to Emergency Department if you should have any new, worsening or concerning symptoms, such as [fever greater than 101 F, shaking chills, worsening pain, persistent vomiting or other bothersome symptoms] Prescriptions: No Action albuterol sulfate [Ventolin HFA] 90 MCG/PUFF HFA aerosol inhaler 2 puff INH Q4HP PRNQty: 1 3RF dextroamphetamine-amphetamine [Adderall XR] 30 mg capsule,extended release 24hr 30 mg PO DAILY Qty: 30 0RF promethazine 25 mg tablet 25 mg PO Q6H Qty: 20 0RF promethazine 25 mg suppository 25 mg KY Q6H PRN (Reason: nausea and vomiting) Qty: 10 0RF promethazine 25 mg suppository 25 mg KY Q6H PRN (Reason: nausea and vomiting) Qty: 12 0RF Stand Alone Forms: Patient Portal/API ED Sign-out <Marily Michele MD - Last Filed: 07/01/23 02:37> Cosign ED Attending Cosignature Attestation: I was immediately available in the department for consultation throughout this patient's visit. Marily Michele MD
[2023-06-29 15:46] LABS: HEMOLYSIS 62 (0-50)
[2023-06-29 16:01] VITALS: BP 121/76; PULSE 77; RESP 20; TEMP 36.7; O2SAT 100
[2023-06-29 17:32] VITALS: BP 119/69; PULSE 83; RESP 18; TEMP 36.8; O2SAT 98
[2023-06-29 18:14] LABS: Adenovirus Not Detected (Not Detect); B. parapertussis Not Detected (Not Detecte); Bordetella pertussis Not Detected (Not Detect); Chlamydophila pneumoniae Not Detected (Not Detect); Coronavirus 229E Not Detected (Not Detect); Coronavirus HKU1 Not Detected (Not Detect); Coronavirus NL 63 Not Detected (Not Detect); Coronavirus OC43 Not Detected (Not Detect); Human Metapneumovirus Not Detected (Not Detect); Human Rhinovirus/Enterovirus Not Detected (Not Detect); Influenza A Not Detected (Not Detect); Influenza B Not Detected (Not Detect); Mycoplasma pneumoniae Not Detected (Not Detect); Parainfluenza Virus 1 Not Detected (Not Detect); Parainfluenza Virus 2 Not Detected (Not Detect); Parainfluenza Virus 3 Not Detected (Not Detect); Parainfluenza Virus 4 Not Detected (Not Detect); Respiratory Syncytial Virus Not Detected (Not Detect); SARS- CoV-2 Not Detected (Not Detecte)
== END 2023-06-29 17:34 | disposition home or self-care (01) ==
PROVIDERS: Emergency Medicine; Emergency Provider Student in an Organized Health Care Education/Training Program
DX: O21.9 Vomiting of pregnancy, unspecified (principal); R10.10 Upper abdominal pain, unspecified; R19.7 Diarrhea, unspecified; Z3A.09 9 weeks gestation of pregnancy; Z20.822 Contact with and (suspected) exposure to COVID-19
CPT/HCPCS: 36415; 76801; 76817; 80053; 81003; 84702; 85025; 86900; 86901; 87633; 99284

== ENCOUNTER → 2023-07-31 11:12 | Outpatient (CLI) | payer OTHER, MEDICAID, SELFPAY ==
[2023-07-31 12:00] LABS: Add Manual Diff / Slide Review NO; Basophils Absolute Auto 0 /uL (0-100); Basophils Percent Auto 0.3 % (0-2); Eosinophils Absolute Auto 100 /uL (0-450); Eosinophils Percent Auto 0.6 % (2-4); Hematocrit 39.2 % (36-46); Hemoglobin 13.7 g/dL (12.0-16.0); Lymphocytes Absolute Auto 1700 /uL (1100-4500); Lymphocytes Percent Auto 15.9 % (25-40); Mean Corpuscular HGB Conc 35.1 % (30-36); Mean Corpuscular Hemoglobin 31.5 PG (26-34); Mean Corpuscular Volume 89.8 fL (80-100); Monocytes Absolute Auto 600 /uL (0-900); Monocytes Percent Auto 5.4 % (3-14); Neutrophils Absolute Auto 8200 /uL (1500-7000); Neutrophils Percent Auto 77.8 % (50-75); Platelet Count 278 X10^3/uL (150-400); Red Blood Cell Count 4.36 X10^6/uL (4.0-5.2); Red Cell Distribution Width 13.3 % (11.6-14.8); White Blood Cell Count 10.5 X10^3/uL (4.5-11.0)
[2023-07-31 12:20] LABS: Iron 145 ug/dL (37-170)
[2023-07-31 12:22] LABS: Appearance Urine UA CLEAR; Bilirubin Urine UA NEGATIVE (NEGATIVE); Color Urine UA YELLOW; Glucose Urine UA NEGATIVE (Negative); Ketones Urine UA TRACE (NEGATIVE); Leukocyte Esterase Urine UA NEGATIVE (NEGATIVE); Nitrite Urine UA NEGATIVE (Negative); Occult Blood Urine UA NEGATIVE (Negative); Protein Urine UA NEGATIVE (Negative)
[2023-07-31 12:23] LABS: pH Urine UA 5.5 (4.5-8.0)
[2023-07-31 12:52] LABS: Hepatitis B Surface Antigen NEGATIVE s/c (NEGATIVE); Rubella Antibody IgG 4.1 IU/mL (>15)
[2023-07-31 12:55] LABS: Ferritin 39 ng/mL (6-137)
[2023-07-31 13:06] LABS: HIV 1 & 2 Ab/Ag 4th Gen Combo NEGATIVE (NEGATIVE); Hep C Virus Ab w/Reflex Quant NEGATIVE s/c (NEGATIVE)
[2023-07-31 13:45] LABS: Urine Chlamydia NOT DETECTED; Urine N gonorrhoeae NOT DETECTED
[2023-08-01 05:31] LABS: RPR Screen Non Reactive (Non Reactive)
[2023-08-01 11:13] LABS: Varicella IgG Antibody 1129 index (Immune >165)
== END ==
PROVIDERS: Referring Provider Family Medicine; Visit Provider Family Medicine
DX: Z34.01 Encounter for supervision of normal first pregnancy, first trimester (principal); D64.9 Anemia, unspecified
CPT/HCPCS: 36415; 80055; 81003; 82728; 83540; 86787; 86803; 86850; 86900; 86901; 87086; 87389; 87491; 87591

== ENCOUNTER → 2023-08-07 09:54 | Outpatient (CLI) | payer OTHER, MEDICAID, SELFPAY ==
--- NOTE | 2023-08-07 09:57 | DI.US.S_ITS ---
PROCEDURE: US OB <= 14 WEEKS FETUS INDICATIONS: Dating of Fetus OUTSIDE/PRIOR DATING DATA: Last menstrual period (LMP): 04/22/2023. LMP-based estimated date of delivery (SHANTI): 01/27/2024. (Working SHANTI) First dating scan (date and location): 06/29/2023. Estimated date of delivery (SHANTI) from first dating scan: 02/01/2024. TECHNIQUE: Real-time scanning was performed of the fetus and maternal pelvic organs, with image documentation. COMPARISON: [facility], OB <= 14 WEEKS FETUS, 06/29/2023, 14:42. FINDINGS: Heart rate is 145 beats per minute. RACHEAL is 10.3 centimeters. Cervical length is 3.9 centimeters. BPD measures 2.9 centimeters. Head circumference measures 9.8 centimeters. Abdominal circumference measures 8.7 centimeters. Femur length measures 1.6 centimeters. Estimated gestational age is 15 weeks and 2 days. Biometry today measures 14 weeks and 6 days. Adnexal structures are within normal limits. IMPRESSION: Living intrauterine gestation with appropriate interval growth. Recommend follow-up routine anatomy scan at 20 weeks Dictated by: Juan Agrawal M.D. on 08/07/2023 at 14:39 Approved by: Juan Agrawal M.D. on 08/07/2023 at 14:41
== END ==
LOC: US 09:55
PROVIDERS: Referring Provider Family Medicine; Visit Provider Family Medicine
DX: Z34.02 Encounter for supervision of normal first pregnancy, second trimester (principal); Z3A.15 15 weeks gestation of pregnancy
CPT/HCPCS: 76801; 76817

== ENCOUNTER → 2023-09-10 15:15 | Outpatient (CLI) | payer OTHER, MEDICAID, SELFPAY ==
--- NOTE | 2023-09-10 15:16 | DI.US.S_ITS ---
PROCEDURE: US OB >= 14 WEEKS FETUS INDICATIONS: ANATOMY OUTSIDE/PRIOR DATING DATA: Last menstrual period (LMP): 04/22/2023. LMP-based estimated date of delivery (SHANTI): 01/27/2024. First dating scan (date and location): 06/29/2023. Estimated date of delivery (SHANTI) from first dating scan: 02/01/2024. The calculations are made using the LMP SHANTI of 01/27/2024. TECHNIQUE: Real-time scanning was performed of the fetus, with image documentation and biometric measurements. Endovaginal scanning: No COMPARISON: None. FINDINGS: Technically limited exam secondary to maternal body habitus. General: A single living intrauterine gestation is present. Presentation: Variable. Placenta: Placental position is anterior , without previa. Amniotic fluid index: 9 point cm, normal range is 5-24 cm. Single deepest vertical pocket is 2.8 cm. heart rate: 144 beats per minute. Maternal cervical canal: 3.6 cm long. Normal lower limit is 2.5 cm. biometrics: Biparietal diameter: 4.3 cm, 18 weeks and 6 days Head circumference: 16.6 cm, 19 weeks and 2 days Abdominal circumference: 13.9 cm, 19 weeks and 2 days Femur length: 3.2 cm, 19 weeks and 6 days Clinically estimated gestational age: 20 weeks and 1 day Composite gestational age from present scan: 19 weeks and 2 days Estimated weight and percentile: 294 g, 14th percentile Anatomic survey: Neuro: Ventricles are non-dilated at less than 10 mm. Cisterna magna is normal at 3-11 mm. Cerebellum is normal in size and morphology. Nuchal skin fold: Normal at less than 6 mm between 14-21 weeks gestational age. Face: Nose and lips, facial profile are normal. Spine: No evidence for spina bifida. Heart: 4-chambered heart is present. The ventricular outflow tracts are not well seen. Diaphragm: Diaphragm is intact. Stomach: Left-sided stomach is present. Kidneys: No hydronephrosis. Normal is less than 5 mm in 2nd trimester, less than 7 mm in 3rd trimester. Cord: 3-vessel cord has orthotopic insertion. Bladder: Normal in size. Extremities: All 4 extremities identified. IMPRESSION: Technically limited exam secondary to maternal body habitus. The 1. Single living intrauterine gestation in variable presentation. 2. Appropriate interval growth. Estimated weight is at 14%. 3. The ventricular outflow tracts are not well seen. Attention on follow-up. Remainder of the anatomy is within normal limits. Dictated by: Maebl Schaffer M.D. on 09/11/2023 at 13:30 Approved by: Mabel Schaffer M.D. on 09/11/2023 at 14:10
== END ==
PROVIDERS: Referring Provider Family Medicine; Visit Provider Family Medicine
DX: Z34.02 Encounter for supervision of normal first pregnancy, second trimester (principal); Z3A.19 19 weeks gestation of pregnancy
CPT/HCPCS: 76811

== ENCOUNTER 2023-10-22 00:11 | Emergency (ER) | payer OTHER, SELFPAY ==
[2023-10-22 00:18] VITALS: BP 145/81; PULSE 99; RESP 16; O2SAT 99; BMI 35.1
--- NOTE | 2023-10-22 00:24 | ED.PREGNANCY ---
HPI - General Chief complaint: Abdominal Pain Stated complaint: ran into corner of sink at work 26 weeks Time Seen by Provider: 10/22/23 00:19 Source: patient, RN notes reviewed and old records reviewed Mode of arrival: Ambulatory Limitations: no limitations History of Present Illness HPI Narrative: 18-year-old at 26 weeks who presents with a complaint of abdominal pain after being at work and bumping into sink. This happened around 8:00 a.m. this evening. Patient states she was walking quickly. She states feels bruised on the inside there is no outer skin changes. She denies any other injury. Patient describes pain at 3/10. Patient has not had any fluid leakage, no bleeding, no urinary symptoms. No other GI symptoms. Patient has not had any cramping. She notes that she has not felt baby move since it happened. She states she does feel baby move every day she is feels like she feels move throughout the day and it is atypical to go several hours without movement. Patient is otherwise healthy. She has a PRN script for promethazine. No prior surgeries. No tobacco, no alcohol she uses marijuana denies other recreational drugs. Patient follows with Dr. Novoa here at [facility] for her care. She is accompanied by family and her significant other. Related Data Home Medications Medication Instructions Recorded Confirmed [id number] 400 mcg-om3 35 mg-dha 25 tab PO 07/25/23 08/29/23 mg-epa 5 mg-fish oil chewable tablet Previous Rx's Medication Instructions Recorded pyridoxine (vitamin B6) 25 mg 25 mg PO TID PRN nausea #30 tabs 07/26/23 tablet promethazine 12.5 mg tablet 12.5 mg PO TID PRN nausea #60 tabs 08/29/23 Allergies Allergy/AdvReac Type Severity Reaction Status Date / Time No Known Drug Allergies Allergy Verified 08/29/23 10:24 Review of Systems Review of Systems ROS Unobtainable: All systems reviewed & are unremarkable except as noted in HPI and below Exam Narrative Exam Narrative: GENERAL: Alert and oriented x three, well-appearing female in mild distress HEENT: Head normocephalic, atraumatic, EOMI, pupils reactive, face symmetric, moist mucous membranes NECK: Supple, full range of motion CARDIOVASCULAR: Regular rate and rhythm without murmurs, rubs or gallops. RESPIRATORY: Breath sounds equal bilaterally, no wheezes rales or rhonchi. ABDOMEN: Soft, nontender. Gravid. No ecchymosis or skin changes. Normoactive bowel sounds all 4 quadrants. No guarding or rebound, rigidity, no mass : No CVA tenderness EXTREMITIES: Normal range of motion, no clubbing or edema. Neurovascularly intact NEUROLOGICAL: Cranial nerves II through XII grossly intact. Moving all extremities. Normal gait. SKIN: Warm, dry, no petechiae, no rashes or lesions. Initial Vital Signs Initial Vital Signs: Vital Signs Pulse Rate 99 H 10/22/23 00:18 Respiratory Rate 16 10/22/23 00:18 Blood Pressure 145/81 H 10/22/23 00:18 Pulse Oximetry 99 10/22/23 00:18 Oxygen Delivery Method Room Air 10/22/23 00:18 Course Orders Ordered: ED Orders 10/22/23 00:39 US OB limited Stat Vital Signs Vital signs: Vital Signs - 8 hr 10/22/23 00:18 10/22/23 02:24 Pulse Rate 99 H 82 Respiratory Rate 16 16 Blood Pressure 145/81 H 129/68 Pulse Oximetry 99 96 Oxygen Delivery Method Room Air Room Air MDM - OB/Uterine Contractions Lab Data Labs: Urine Dip Bedside Urine Glucose Negative Bedside Urine Bilirubin - Negative Bedside Urine Ketone +/- 5 Urine Specific [place] 1.020 Bedside Urine Occult Blood - Negative Bedside Urine pH 6.0 Bedside Urine Protein - Negative Bedside Urine Urobilinogen - Negative Bedside Urine Nitrite - Negative Bedside Urine Leukocytes - Negative Esterase Imaging Data US - OB: Radiologist's Impression: Close Obstetrics Ultrasound (Signed) Jason Banegas - 10/22/23 [place] [address] Ultrasound Report Signed Patient: Eufemia Betancourt MR#: [id number] : 2005 Acct:[id number] Age/Sex: 18 / F Date of Service: 10/22/23 Loc: ED Accession Number: [id number] Procedure: US OB limited Ordering Provider: Alissa Robbins D.O. PROCEDURE: US OB LIMITED INDICATIONS: hit abd earlier today, 26wks, doesn't feel baby move. OUTSIDE/PRIOR DATING DATA: Last menstrual period (LMP): April 22, 2023. LMP-based estimated date of delivery (SHANTI): January 27, 2024. First dating scan (date and location): June 29, 2023. Estimated date of delivery (SHANTI) from first dating scan: February 01, 2024. The calculations are made using the LMP SHANTI of January 27, 2024. TECHNIQUE: Real-time scanning was performed of the fetus, with image documentation. Endovaginal scanning: Not performed COMPARISON: None. FINDINGS: A single living intrauterine gestation is present. Presentation: Vertex. Placenta: Placental position is anterior, without previa. No abnormal fluid collection identified. Amniotic fluid index: 12.4 cm cm, normal range is 5-24 cm. Single deepest vertical pocket is 4.7 cm. heart rate: 137 beats per minute. Clinically estimated gestational age: 26 weeks and 1 day IMPRESSION: Single living intrauterine gestation with estimated gestational age of approximately 26 weeks and 1 day. No sonographic abnormalities identified. Dictated by: Jason Banegas M.D. on 10/22/2023 at 1:50 Approved by: Jason Banegas M.D. on 10/22/2023 at 1:52 [facility] Narrative Medical decision making narrative: 18-year-old female with complaint of running into a sink fairly low mechanism of injury but patient notes she has not felt baby move for several hours which is atypical. Discussed with patient we will obtain OB ultrasound. Ultrasound shows living intrauterine gestation with age 26 weeks and 1 day consistent with dates reported by patient. Heart rates 137 with no obvious abnormal fluid collections. No sonographic abnormalities were identified. Point of care urine shows ketones, no nitrates, no leuks, no blood. Updated patient on her findings. She continues to otherwise be well-appearing and plan for follow up with primary care. Patient discharged home with plan for follow up with her obstetrical team as needed. I Did fill out her L and I paperwork, patient had minor abdominal trauma during but this is not an option for clinical impression. Discharge Plan Departure Patient Disposition: Home Clinical Impression: Person with feared complaint, no diagnosis made, Activity Restrictions/Additional Instructions: Follow up with your provider as needed. Can take Tylenol up to a 1000 mg every 6 hours if needed for pain. Please return for rapidly worsening symptoms, new abdominal back or flank pain, lightheadedness or passing out, persistent vomiting, vaginal bleeding or other new or concerning changes. Prescriptions: No Action pyridoxine (vitamin B6) 25 mg tablet 25 mg PO TID PRN (Reason: nausea) Qty: 30 1RF promethazine 12.5 mg tablet 12.5 mg PO TID PRN (Reason: nausea) Qty: 60 2RF [id number] oil 400 mcg-35 mg -25 mg-5 mg tablet,chewable PO Referrals: Miscellaneous,Doctor, MD [Primary Care Provider] - Stand Alone Forms: Patient Portal/API
--- NOTE | 2023-10-22 00:39 | DI.US.S_ITS ---
PROCEDURE: US OB LIMITED INDICATIONS: hit abd earlier today, 26wks, doesn't feel baby move. OUTSIDE/PRIOR DATING DATA: Last menstrual period (LMP): April 22, 2023. LMP-based estimated date of delivery (SHANTI): January 27, 2024. First dating scan (date and location): June 29, 2023. Estimated date of delivery (SHANTI) from first dating scan: February 01, 2024. The calculations are made using the LMP SHANTI of January 27, 2024. TECHNIQUE: Real-time scanning was performed of the fetus, with image documentation. Endovaginal scanning: Not performed COMPARISON: None. FINDINGS: A single living intrauterine gestation is present. Presentation: Vertex. Placenta: Placental position is anterior, without previa. No abnormal fluid collection identified. Amniotic fluid index: 12.4 cm cm, normal range is 5-24 cm. Single deepest vertical pocket is 4.7 cm. heart rate: 137 beats per minute. Clinically estimated gestational age: 26 weeks and 1 day IMPRESSION: Single living intrauterine gestation with estimated gestational age of approximately 26 weeks and 1 day. No sonographic abnormalities identified. Dictated by: Jason Banegas M.D. on 10/22/2023 at 1:50 Approved by: Jason Banegas M.D. on 10/22/2023 at 1:52
[2023-10-22 02:24] VITALS: BP 129/68; PULSE 82; RESP 16; O2SAT 96
== END 2023-10-22 02:28 | disposition home or self-care (01) ==
PROVIDERS: Emergency Provider Emergency Medicine
DX: O26.892 Other specified pregnancy related conditions, second trimester (principal); R10.9 Unspecified abdominal pain; Y99.0 Civilian activity done for income or pay; Z71.1 Person with feared health complaint in whom no diagnosis is made; Z3A.26 26 weeks gestation of pregnancy
CPT/HCPCS: 76815; 81003; 99281; 99283

== ENCOUNTER → 2023-11-13 14:05 | Outpatient (CLI) | payer OTHER, MEDICAID, SELFPAY ==
--- NOTE | 2023-11-13 14:07 | DI.US.S_ITS ---
PROCEDURE: US OB FOLLOW UP INDICATIONS: RE-EVALUATE OUTFLOW TRACTS OUTSIDE/PRIOR DATING DATA: Last menstrual period (LMP): 04/22/2023. LMP-based estimated date of delivery (SHANTI): 01/27/2024. First dating scan (date and location): 06/29/2022. Estimated date of delivery (SHANTI) from first dating scan: 02/01/2024. The calculations are made using the working SHANTI of 01/27/2024. TECHNIQUE: Real-time scanning was performed of the fetus, with image documentation. Endovaginal scanning: Not performed [facility] , [facility] >= 14 WEEKS FETUS, 09/10/2023, 15:28. FINDINGS: A single living intrauterine gestation is present. Presentation: Vertex. Placenta: Placental position is anterior, without previa. Amniotic fluid index: 12.1 cm, normal range is 5-24 cm. Single deepest vertical pocket is 4.5 cm. heart rate: 136 beats per minute. Maternal cervical canal: 3.0 cm long. Normal lower limit is 2.5 cm. Clinically estimated gestational age: 29 weeks 4 days Other: Cardiac outflow tracts are well seen, and are within normal limits. IMPRESSION: 1. Living 3rd trimester intrauterine with no sonographic evidence of complications. 2. The purpose of this study was to evaluate the cardiac outflow tracts, which are within normal limits. Dictated by: Bravo Clarke M.D. on 11/13/2023 at 16:12 Approved by: Bravo Clarke M.D. on 11/13/2023 at 16:20
== END ==
LOC: US 14:06
PROVIDERS: PCP Family Medicine; Referring Provider Family Medicine; Visit Provider Family Medicine
DX: Z34.93 Encounter for supervision of normal pregnancy, unspecified, third trimester (principal); Z3A.29 29 weeks gestation of pregnancy
CPT/HCPCS: 76816

== ENCOUNTER → 2023-12-18 13:06 | Outpatient (CLI) | payer OTHER, MEDICAID, SELFPAY ==
[2023-12-18 15:20] LABS: GTT (PREG) 1 Hour PP 50gm Dose 74 mg/dL (76-139)
== END ==
PROVIDERS: PCP Family Medicine; Referring Provider Family Medicine; Visit Provider Family Medicine
DX: Z34.90 Encounter for supervision of normal pregnancy, unspecified, unspecified trimester (principal)
CPT/HCPCS: 36415; 82950

== ENCOUNTER → 2024-01-01 09:49 | Outpatient (CLI) | payer OTHER, MEDICAID, SELFPAY ==
[2024-01-02 09:16] LABS: Strep Grp B PCR NEG for Grp B Strep
== END ==
PROVIDERS: PCP Family Medicine; Visit Provider Family Medicine
DX: Z34.00 Encounter for supervision of normal first pregnancy, unspecified trimester (principal)
CPT/HCPCS: 87653

== ENCOUNTER → 2024-01-23 10:45 | Outpatient (CLI) | payer OTHER, MEDICAID, SELFPAY ==
[2024-01-23 11:02] LABS: Add Manual Diff / Slide Review NO; Basophils Absolute Auto 100 /uL (0-100); Basophils Percent Auto 0.5 % (0-2); Eosinophils Absolute Auto 200 /uL (0-450); Eosinophils Percent Auto 2.3 % (2-4); Hematocrit 34.7 % (36-46); Lymphocytes Absolute Auto 2000 /uL (1100-4500); Lymphocytes Percent Auto 20.7 % (25-40); Mean Corpuscular HGB Conc 34.6 % (30-36); Mean Corpuscular Hemoglobin 31.1 PG (26-34); Mean Corpuscular Volume 89.8 fL (80-100); Monocytes Absolute Auto 800 /uL (0-900); Monocytes Percent Auto 8.4 % (3-14); Neutrophils Absolute Auto 6700 /uL (1500-7000); Neutrophils Percent Auto 68.1 % (50-75); Platelet Count 194 X10^3/uL (150-400); Red Blood Cell Count 3.87 X10^6/uL (4.0-5.2); Red Cell Distribution Width 13.5 % (11.6-14.8); White Blood Cell Count 9.8 X10^3/uL (4.5-11.0)
[2024-01-23 11:23] LABS: Alanine Aminotransferase 14 IU/L (<35); Albumin 3.2 g/dL (3.5-5.0); Albumin Globulin Ratio 0.9 (1.0-2.8); Alkaline Phosphatase 216 U/L (38-126); Aspartate Aminotransferase 19 IU/L (14-36); Bilirubin Total 0.4 mg/dL (0.2-1.3); Blood Urea Nitrogen 6 mg/dL (7-17); Carbon Dioxide 17 mmol/L (22-32); Chloride 110 mmol/L (98-107); Estimated Glomerular Filt Rate > 60 mL/min (>60); Globulin 3.4 g/dL (1.7-4.1); Glucose 83 mg/dL (70-100); HEMOLYSIS < 15 (0-50); Potassium 3.7 mmol/L (3.4-5.1); Sodium 133 mmol/L (137-145); Total Protein 6.6 g/dL (6.3-8.2)
[2024-01-23 12:09] LABS: Creatinine Urine Random 250.89 mg/dL
[2024-01-23 12:10] LABS: Protein (Total) Urine Random < 5 mg/dL (0-12); Protein Creatinine Ratio Urine 0.01 GRAM/24H
== END ==
LOC: LAB 10:46
PROVIDERS: PCP Family Medicine; Referring Provider Family Medicine; Visit Provider Family Medicine
DX: Z34.00 Encounter for supervision of normal first pregnancy, unspecified trimester (principal)
CPT/HCPCS: 36415; 80053; 82570; 84156; 85025

== ENCOUNTER 2024-01-27 21:10 | Inpatient (IN) | payer OTHER, MEDICAID, SELFPAY ==
[2024-01-27 22:09] VITALS: BP 139/81
[2024-01-27] MEDS: miSOPROStoL 25 MCG TABLET VAG (23:05)
[2024-01-27 23:42] LABS: Add Manual Diff / Slide Review NO; Basophils Absolute Auto 0 /uL (0-100); Basophils Percent Auto 0.4 % (0-2); Eosinophils Absolute Auto 200 /uL (0-450); Eosinophils Percent Auto 1.6 % (2-4); Hematocrit 33.6 % (36-46); Hemoglobin 11.4 g/dL (12.0-16.0); Lymphocytes Absolute Auto 2100 /uL (1100-4500); Lymphocytes Percent Auto 17.7 % (25-40); Mean Corpuscular Hemoglobin 30.9 PG (26-34); Mean Corpuscular Volume 90.9 fL (80-100); Monocytes Absolute Auto 1100 /uL (0-900); Monocytes Percent Auto 9.1 % (3-14); Neutrophils Absolute Auto 8300 /uL (1500-7000); Neutrophils Percent Auto 71.2 % (50-75); Platelet Count 204 X10^3/uL (150-400); Red Cell Distribution Width 13.7 % (11.6-14.8); White Blood Cell Count 11.7 X10^3/uL (4.5-11.0)
[2024-01-28] MEDS: ZOLPIDEM 5 MG TABLET PO (01:16)
[2024-01-28] MEDS: miSOPROStoL 25 MCG TABLET VAG (03:31)
--- NOTE | 2024-01-28 08:02 | PM.OBHP.1 ---
OB HPI Date/Time Date of admission: 01/28/24 Date Patient Seen: 01/28/24 Time Patient Seen: 07:03 History of Present Condition Chief complaint: Induction : 1 Para: 0 Estimated Date of Delivery: 01/27/24 Estimated Gestational Age (weeks): 40w1d Narrative: Eufemia Betancourt is a 18 year old presenting for IOL at 40w1d. has been uncomplicated. Over the last week blood pressures have been slightly higher but no values >140/90 and no Pre-E sx. PIH labs have been within normal limits. AT last SVE she was History of Present care: good care Dating criteria: based on LMP only Ultrasounds: normal 1st trimester US and normal mid trimester US Obstetrical complications: none Medical complications: none Preadmission Labs Blood type: O (+) positive -: Antibody screen: negative, GBS status: negative, HBsAG: negative, HIV: negative and RPR/VDLR: negative -: Chlamydia screen: not detected and Gonorrhea screen: not detected -: Rubella: not immune and Varicella: immune HCT: 13.7 HCAB: negative PAP: Normal (NA- not 21 yet ) 1 hr GTT: 74 Evaluation Evaluation Baseline heart rate: 130 Variability: Moderate (11-25) monitor accelerations: Present Monitor Decelerations: Absent Contraction Frequency (minutes): 15 Category of Tracing: Reactive Status: Category l Dilation (cm): 1 Effacement (%): 2 Dilation: 1-2 cm Effacement: 0-30% station: -4 Position of cervix: posterior Consistency: medium Mitchell score: 2 PFSH Medical History (Updated 11/06/23 @ 00:01 by ) Back pain affecting Headache in Nausea/vomiting in Pleurisy Eustachian tube dysfunction Acute bronchospasm Cellulitis and abscess of upper arm and forearm Surgical History (Updated 07/25/23 @ 13:10 by Annette Sanchez RN) No pertinent past surgical history Family History (Updated 07/25/23 @ 13:11 by Annette Sanchez RN) Brother Oppositional defiant disorder of childhood or adolescence ADHD Tourettes syndrome Mother Obesity Anxiety Social History marital status: unmarried,living together number of children: 0 household members: significant other and family lives independently: Yes caregiver/support person: No housing: other pets and animals: Yes (multiple cats, other household members manage litter boxes) education level: high school occupational status: employed current occupational exposures/hazards: No special mathew needs: No travel history: over 6 months ago seatbelt use: always water heater temp set < 120 deg: Yes working smoke detector in home: Yes fire extinguisher in home: No carbon monox detector in home: Yes firearms in home: No do you feel safe at home: Yes Smoking Status: Never smoker second hand exposure: No alcohol intake: former substance use type: marijuana during the past year weight has: remained stable well-balanced diet: rarely or never daily servings fruits/ve-1 caffeine: Yes Type(s) of exercise: walking Meds Home Medications and Allergies Home Medications Medication Instructions Recorded Confirmed Type [id number] 400 mcg-om3 35 mg-dha 25 tab PO 07/25/23 01/25/24 History mg-epa 5 mg-fish oil chewable tablet pyridoxine (vitamin B6) 25 mg 25 mg PO TID PRN nausea #30 tabs 07/26/23 01/28/24 Rx tablet promethazine 12.5 mg tablet 12.5 mg PO TID PRN nausea #60 tabs 08/29/23 01/28/24 Rx Allergies Allergy/AdvReac Type Severity Reaction Status Date / Time No Known Drug Allergies Allergy Verified 01/25/24 09:57 Review of Systems Review of Systems Narrative: - Guzman - vision changes + movement - LOF - vaginal bleeding - RUQ pain OB Exam Vital signs Blood Pressure: 136/67 Pulse Rate: 73 Respiratory Rate: 18 Temperature: 36.4 F Narrative Exam Narrative: GEN: Healthy appearing, well-developed, NAD. PSYCH: Good Judgment. AOx3. Normal memory, mood, and affect HEENT: -Head: NC/AT -Eyes: No discharge or redness CV: warm and well perfused LUNGS: breathing comfortably on RA ABD: gravid SKIN: Warm, well perfused. No skin rashes or abnormal lesions MSK: No deformities NEURO: No focal deficits Objective Labs 01/27/24 22:45 Labs: Laboratory Results - last 24 hr 01/27/24 22:45 WBC 11.7 H RBC 3.70 L Hgb 11.4 L Hct 33.6 L MCV 90.9 MCH 30.9 MCHC 34.0 RDW 13.7 Plt Count 204 Neut % (Auto) 71.2 Lymph % (Auto) 17.7 L [place] % (Auto) 9.1 Eos % (Auto) 1.6 L Baso % (Auto) 0.4 Neut # (Auto) 8300 H Lymph # (Auto) 2100 [place] # (Auto) 1100 H Eos # (Auto) 200 Baso # (Auto) 0 Blood Type O Positive Antibody Screen Negative Assessment and Plan Assessment and Plan Assessment and Plan narrative: 18 yo G1 presenting at 40w1d for IOL. has been uncomplicated. Over the last week BPs have risen but not to diagnosable or treatable range and Pre-E labs have been normal. #IOL: - Admit to LD - CBC, TS - Start with oral cytotec, start 25mcg, if tolerate, increase to 50mcg - intermittent monitoring - GBS negative Time-Based Coding :: [TOTAL MINUTES] spent with patient and on the chart (including review of chart, obtaining history, exam, reviewing outside data, placing orders, documenting exam and treatment plan, and counseling patient) on [DATE].
[2024-01-28] MEDS: miSOPROStoL 25 MCG TABLET 50 MCG PO ×2 (08:26→13:38)
[2024-01-28 08:28] VITALS: BP 136/67; PULSE 73; RESP 18; TEMP 2.4; TEMP 36.4
[2024-01-28] MEDS: LACTATED RINGERS 1,000 ML 100 ML IV (08:40)
[2024-01-28] MEDS: DINOPROSTONE VAG (CERVIDIL) 10 MG VAG (18:46)
--- NOTE | 2024-01-28 19:18 | PM.OBPNLAB ---
Date/Time Date Patient Seen: 01/28/24 Time Patient Seen: 18:24 Pelvic Exam Dilation (cm): 1 Effacement (%): 20 station: -4 Contractions Contractions on admission: irregular Monitor mode: External Contraction pattern: Irregular Status status: Category l Heart Rate Baseline: 130 Monitor Accelerations: Present Monitor Decelerations: Absent Monitor Variability: Moderate Assessment and Plan Assessment: induction ongoing Comments: SVE with minimal change, Balloon placed this afternoon but fell outwith minimal change. starting to get more uncomfortable, transition to Cervadil. Continue with continuous monitoring. FHT reassuring
[2024-01-29] MEDS: ZOLPIDEM 5 MG TABLET PO (00:27)
--- NOTE | 2024-01-29 08:50 | PM.OBPNLAB ---
Date/Time Date Patient Seen: 01/29/24 Time Patient Seen: 08:50 Pain Control Pain control: tolerating well Pelvic Exam Dilation (cm): 1 Effacement (%): 50 station: -3 Amniotic membrane status: Intact Contractions Contractions on admission: irregular Monitor mode: External Contraction pattern: Irregular Status status: Category l Heart Rate Baseline: 135 Monitor Accelerations: Present Monitor Decelerations: Absent Monitor Variability: Moderate Assessment and Plan Assessment: induction ongoing Comments: 28 yo G1 at 40w2d admitted for IOL. s/p Miso 25mch x2, 50mcg x2 then transition to Cervadil x12 hours, removed this AM, minimal cervical change. Will transition back to miso 50cg. If no change after 1-2 doses will plan to move to low dose Pit. Basilia styles attempted yesterday, pelvic floor tight and difficulty to place due to discomfort. Can consider re-attempt this afternoon as well, potentialyl wtih Fentanyl pre-treatment to allow for better tolerance of placement. FHT reactive and reassuring.
[2024-01-29] MEDS: miSOPROStoL 25 MCG TABLET 50 MCG PO ×2 (10:47→14:45)
[2024-01-29] MEDS: OXYTOCIN PREMIX 30 UNIT/500 ML PLAST..BAG IV (19:54)
[2024-01-30] MEDS: LACTATED RINGERS 1,000 ML 100 ML IV ×2 (07:50→16:49)
--- NOTE | 2024-01-30 08:32 | PM.AN.REGBLK ---
Regional Block Pre-procedure Procedure: Continuous Lumbar Epidural for L&D Attending OB provider: Laney Novoa PMH/ROS narrative: , IOL for hypertension PSH/Anesthesia history narrative: none ASA Class: II Labs: Hct 33.6 % (36-46) L 01/27/24 22:45 Plt Count 204 X10^3/uL (150-400) 01/27/24 22:45 Medications: Current Medications Generic Name Dose Route Start Last Admin Trade Name Freq PRN Reason Stop Dose Admin Acetaminophen 650 mg 01/27/24 22:06 Acetaminophen 325 Mg Tablet PO Q4HR PRN Fever/Mild Pain (1-3) Carboprost Tromethamine 250 mcg 01/27/24 22:06 Carboprost 250 Mcg/Ml Ampul IM Q90M PRN Bleeding Fentanyl 50 mcg 01/27/24 22:06 Fentanyl 100 Mcg/2 Ml Inj IV Q1H PRN Pain, Moderate (4-6) Lactated Ringer's 1,000 mls @ 100 mls/hr 01/27/24 22:15 01/28/24 08:40 Lactated Ringers IV 100 mls/hr CONT BREN Administration Lactated Ringer's 1,000 mls @ 100 mls/hr 01/27/24 22:15 Lactated Ringers IV CONT BREN Oxytocin/Lactated Ringer's 30 unit in 500 mls @ 200 mls/hr 01/27/24 22:06 Oxytocin Premix IV CONT PRN Bleeding Protocol Oxytocin/Lactated Ringer's 30 unit in 500 mls @ 1 mls/hr 01/27/24 22:15 01/29/24 19:54 Oxytocin Premix IV 1 milliunit/min TITRATE BREN 1 mls/hr Administration Protocol 1 MILLIUNIT/MIN Tranexamic Acid 1,000 mg/ 100 mls @ 600 mls/hr 01/27/24 22:06 Sodium Chloride IV NOW PRN Bleeding Lidocaine HCl 20 ml 01/27/24 22:06 Lidocaine 1% 20 Ml INJ INTRA-OP PRN Post Delivery Methylergonovine Maleate 0.2 mg 01/27/24 22:06 Methylergonovine 0.2 Mg/Ml Vial IM NOW PRN Bleeding Methylergonovine Maleate 0.2 mg 01/27/24 22:06 Methylergonovine 0.2 Mg Tablet PO Q6HR PRN Heavy Bleeding Misoprostol 800 mcg 01/27/24 22:06 Misoprostol 200 Mcg Tablet CO NOW PRN Bleeding Misoprostol 400 mcg 01/27/24 22:06 Misoprostol 200 Mcg Tablet SL NOW PRN Bleeding Misoprostol 50 mcg 01/28/24 08:15 01/29/24 14:45 Misoprostol 25 Mcg Tablet PO 50 mcg Q4H BREN Administration Morphine Sulfate 2 mg 01/27/24 22:06 Morphine 2 Mg/Ml Inj IV Q4HR PRN Pain, Moderate (4-6) Naloxone HCl 0.2 mg 01/27/24 22:06 Naloxone 0.4 Mg/Ml Vial IV Q2MIN PRN Opiate Reversal Ondansetron HCl 4 mg 01/27/24 22:06 Ondansetron 4 Mg/2 Ml Inj IV Q4HR PRN Nausea And Vomiting Oxytocin 10 unit 01/27/24 22:06 Oxytocin 10 Unit/Ml Vial IM NOW PRN Bleeding Zolpidem Tartrate 5 mg 01/27/24 23:41 01/29/24 00:27 Zolpidem 5 Mg Tablet PO 5 mg BEDTIME PRN Administration Sleep Allergies: Allergies Allergy/AdvReac Type Severity Reaction Status Date / Time No Known Drug Allergies Allergy Verified 01/25/24 09:57 Procedure Insertion date: 01/30/24 Insertion time: 08:10 Prep/Local: 1% lidocaine Interspace: L4-5 Patient position: sitting Needle: 17 gauge Tuohy Loss of resistance with: saline KE at (cm): 8 Catheter placed at SKIN (cm): 15 Catheter in SPACE (cm): 7 Sensory level: T10 Initial Medications TEST DOSE time: 08:16 Infusion Initial rate (mL/hr): 8
--- NOTE | 2024-01-30 09:51 | PM.OBPNLAB ---
Date/Time Date Patient Seen: 01/30/24 Time Patient Seen: 08:00 Pain Control Pain control: epidural (epidural being placed ) Pelvic Exam Dilation (cm): 1.5 Effacement (%): 75 station: -2 Amniotic membrane status: Ruptured Comments: SROm this morning at 5:30am Contractions Monitor mode: External Pitocin rate (mU/min): 9 Contraction frequency (min): 5 Contraction pattern: Irregular (contractions not picking up on Angella, pt marking when occuring ) Status status: Category l Heart Rate Baseline: 135 Monitor Accelerations: Present Monitor Decelerations: Absent Monitor Variability: Moderate Assessment and Plan Assessment: induction ongoing Comments: 18 yo G1 at 40w3d undergoing IOL. induction progress slow, overnight pitocin started at low dose. SROM this am at 530. Pt now more uncomfortable, requesting epidural, SVE 1.5/75/-2 by RN check after epidural placement. Monitor not tracing contractions well. tracing reassuring and reactive. Will plan for IUPC placement with next cervical check to monitor contraction stregth. continue to check BPs and now temps and watch fo rsigns of PRe-E and intraamniotic nifection
--- NOTE | 2024-01-30 12:41 | PM.OBPNLAB ---
Date/Time Date Patient Seen: 01/30/24 Time Patient Seen: 12:42 Pain Control Pain control: epidural Pelvic Exam Dilation (cm): 3 Effacement (%): 75 station: -2 Amniotic membrane status: Ruptured Contractions Contractions on admission: regular Monitor mode: External Pitocin rate (mU/min): 15 Contraction frequency (min): 4 Contraction duration (min): 1 Contraction pattern: Irregular (contractions not picking up on Angella, pt marking when occuring ) Contraction intensity: Moderate Status status: Category l Heart Rate Baseline: 140 Monitor Accelerations: Present Monitor Decelerations: Absent Monitor Variability: Moderate Assessment and Plan Assessment: induction ongoing Plan: continuous present management Comments: 18 yo G1 at 40w3d undergoing IOL. induction progress slow, overnight pitocin started at low dose. SROM this am at 530. Epidural in pace and more comfortable. Contractions not tracing well so IUPC placed. FSE placed as well. 375/-2 after IUPC placement. tracing reassuring and reactive. contraction occuring every 4-5 minutes, appearing not quite adeqaute during first 10 min of IUPC placement (150MVU), will continue to increase Pitocin. continue to check BPs and temps and watch for signs of PRe-E and intraamniotic infection
[2024-01-30] MEDS: FENT 2MCG/ML BUPIV 0.125% EPI 200 MCG/100 ML PLAST..BAG 6 MCG EPIDURAL ×2 (16:28→23:35)
[2024-01-30] MEDS: ONDANSETRON 4 MG/2 ML INJ IV (17:20)
[2024-01-30 22:25] VITALS: BP 170/99
[2024-01-30] MEDS: LABETALOL 20 MG/4 ML SYRINGE IV (22:25)
[2024-01-30] MEDS: MAGNESIUM SULFATE 6 GM in SODIUM CHLORIDE 0.9% 100 ML IV (22:28)
[2024-01-30] MEDS: LABETALOL 20 MG/4 ML SYRINGE 40 MG IV (22:40)
[2024-01-30] MEDS: MAGNESIUM SULFATE 20 GM/500 ML IV.SOLN IV (23:33)
[2024-01-30 23:35] LABS: Add Manual Diff / Slide Review NO; Basophils Absolute Auto 100 /uL (0-100); Basophils Percent Auto 0.3 % (0-2); Eosinophils Absolute Auto 0 /uL (0-450); Eosinophils Percent Auto 0.1 % (2-4); Hematocrit 34.9 % (36-46); Hemoglobin 11.8 g/dL (12.0-16.0); Lymphocytes Absolute Auto 1600 /uL (1100-4500); Lymphocytes Percent Auto 10.4 % (25-40); Mean Corpuscular Hemoglobin 30.6 PG (26-34); Mean Corpuscular Volume 90.1 fL (80-100); Monocytes Absolute Auto 900 /uL (0-900); Monocytes Percent Auto 5.8 % (3-14); Neutrophils Absolute Auto 12900 /uL (1500-7000); Neutrophils Percent Auto 83.4 % (50-75); Platelet Count 178 X10^3/uL (150-400); Red Blood Cell Count 3.87 X10^6/uL (4.0-5.2); Red Cell Distribution Width 13.3 % (11.6-14.8); White Blood Cell Count 15.5 X10^3/uL (4.5-11.0)
[2024-01-30 23:55] LABS: Alanine Aminotransferase 13 IU/L (<35); Albumin Globulin Ratio 0.9 (1.0-2.8); Alkaline Phosphatase 237 U/L (38-126); Aspartate Aminotransferase 19 IU/L (14-36); BUN Creatinine Ratio 8.9 (6-22); Bilirubin Total 0.7 mg/dL (0.2-1.3); Blood Urea Nitrogen 4 mg/dL (7-17); Calcium 7.9 mg/dL (8.4-10.2); Carbon Dioxide 18 mmol/L (22-32); Chloride 109 mmol/L (98-107); Estimated Glomerular Filt Rate > 60 mL/min (>60); Globulin 3.2 g/dL (1.7-4.1); Glucose 94 mg/dL (70-100); HEMOLYSIS < 15 (0-50); Potassium 3.6 mmol/L (3.4-5.1); Sodium 133 mmol/L (137-145); Total Protein 6.2 g/dL (6.3-8.2)
--- NOTE | 2024-01-31 07:59 | PM.OBPNLAB ---
Date/Time Date Patient Seen: 01/31/24 Time Patient Seen: 07:33 Pain Control Pain control: epidural (intermittently struggling with pain control ) Pelvic Exam Dilation (cm): 4 Effacement (%): 75 station: -2 Amniotic membrane status: Ruptured Contractions Contractions on admission: none Monitor mode: External Contraction frequency (min): 4 Contraction pattern: Irregular (contractions not picking up on Angella, pt marking when occuring ) Contraction intensity: Moderate Status status: Category ll Heart Rate Baseline: 130 Monitor Accelerations: Absent Monitor Decelerations: Late (intermittent lates) Monitor Variability: Moderate (with periods of minimal ) Assessment and Plan Comments: 18 yo G1 at 40w4d undergoing induction of labor. Progress have been slow. She is s/p 24 hours of cytotec, cervadil, 2 more doses of cytotec and now 24 hours of Pitocin and has made minimal change. IUPC in place showing inadequate contractions but unable to increase rate due to FHT with shallow recurrent late decels and periods of minimal variability. Overnight with severe range BPS, started on Mag for Pre-E wtih SF. She does have a LAZARO this AM. Due to failure to progress, non-reassuring FHT remote from delivery and development of Pre-E with SF, decision made to more to CS. CS consent form signed with pt. All questions answered - consent for signed, OR aware - Ancef + Azithro for surgical ppx and ROM - NPO now - IV in place - PPH meds in the room, no methergine due to HTN - Continuous monitoring - Continue Mag 2g/h (6g bolus given overnight) - IV Labetolol for severe range BPs per protocol, 20, 40, 80 - continue checking temp, no fevers at this point, but continue to watch for signs of intramaniotic infection - anesthesia consult for possible rebolus vs adjustment of epidural, pt aware of potential for general anesthesia and how this would change the process
[2024-01-31] MEDS: FENT 2MCG/ML BUPIV 0.125% EPI 200 MCG/100 ML PLAST..BAG 6 MCG EPIDURAL (09:25)
--- NOTE | 2024-01-31 09:34 | SUR.OPER ---
Supine on Padded OR bed, head on pillow, safety belt at thigh, arms secured on padded arm boards at <90 degrees abduction. Bump under right buttock. Legs uncrossed with pillow under knees, gel pad to heels, tape over blanket to lower legs.
[2024-01-31] MEDS: MAGNESIUM SULFATE 20 GM/500 ML IV.SOLN IV ×2 (09:35→20:08)
[2024-01-31] MEDS: CITRIC ACID/SODIUM CITRATE 15 ML SOLUTION 30 ML PO (09:42)
[2024-01-31] MEDS: CEFAZOLIN 2 GM/100 ML PREMIX 100 ML IV (10:20)
[2024-01-31] MEDS: ACETAMINOPHEN IV 1,000 MG/100 ML VIAL 400 MG IV (10:30)
[2024-01-31] MEDS: LACTATED RINGERS 1,000 ML 100 ML IV ×2 (11:06→15:19)
[2024-01-31 11:32] VITALS: BP 121/85; PULSE 95; RESP 14; TEMP 36.3; O2SAT 96
[2024-01-31 11:38] VITALS: BP 128/88; PULSE 95; RESP 13; O2SAT 97
[2024-01-31 11:42] VITALS: BP 141/79; PULSE 97; RESP 13; O2SAT 96
--- NOTE | 2024-01-31 11:43 | P.OP_ITS ---
Operative Date/Time/Diagnoses Date of procedure: 01/31/24 Time of procedure: 11:44 Pre-op diagnosis: failure to progress in labor, Pre-Eclampsia with SF remote from delivery Post-op diagnosis: same Procedure & Clinicians Procedure: Primary Low transverse Same procedure as scheduled: Yes Indications: failure to progress in labor, Pre-Eclampsia with SF remote from delivery, Non- reassuring FHT Surgeon: Laney Novoa Click Yes if Unassisted: No Compensation Supervisor: Melania Brewer Reason for Compensation Supervisor: Compensation Supervisor required for the safe, effective, and timely completion of this surgery. The agency sales management assistant was necessary to retract upon entry into the abdomen and uterus. Assisted with delivery of the infant with fundal pressure. Assisted with closure with retraction, holding suture, and closure of the contralateral fascia. Anesthesia Type: Spinal Operative Notes Findings: Normal uterus, ovaries, and tubes Closure Type: primary Applied: Catheter Estimated Blood Loss (mL): 500 Blood products transfused: none Procedure in detail: Indications: failure to progress in labor, Pre-Eclampsia with SF remote from delivery, Non-reassuring FHT Pre Op abx: Azithromycin 500mg once + Ancef 2g IB once OPERATIVE COURSE: The patient was taken to the operating room where epidural was found to be insufficient for analgesia so spinal anesthesia was placed. She was then prepared and draped in the normal sterile fashion in the dorsal supine position with a leftward tilt. A vaginal prep was performed in addition to the usual abdominal prep. Anesthesia was tested and found to be adequate. A Pfannensteil skin incision was then made with the scalpel and carried through to the underlying layer of fascia with the scalpel. The fascia was incised in the midline and the incision extended laterally bluntly. The rectus muscles were then in the midline, and the peritoneum was identified and entered bluntly. The peritoneal incision was then extended with good visualization of the bladder. Retraction was provided by the surgical aides teacher. The bladder blade was then inserted and the vesicouterine peritoneum identified, and was felt to be safe to proceed without bladder flap. A Jere retractor was placed for improved visualization. The lower uterine segment incised in a transverse fashion with the scalpel, with the surgical aides teacher providing suction. The uterine incision was then extended laterally by pulling superolaterally on both sides. Membranes were ruptured and fluid was clear. The bladder blade was removed the infant's head was flexed out of Direct OA position position and delivered atraumatically, with fundal pressure by the surgical aides teacher. A nuchal arm and loose nuchal cord were both present. The nose and mouth were suctioned with bulb suction and the cord was clamped and cut after a 60 second delay. The infant was handed off to the waiting nursing staff and interactive art director who was called to delivery due to unscheduled CS and NRFHT. Cord blood was collected. Time of delivery was 10:39. APGARS were 8 and 10 at one and five minutes respectively. The placenta was then delivered with gentle cord traction. The uterus was cleared of all clots and debris. The uterine incision was repaired in situ with 0 Vicryl in a running, locked fashion. A second layer of the same suture was used to obtain excellent hemostasis. Ovaries and Fallopian tubes were visualized and normal bilaterally. The Jere retractor was removed. The gutters were cleared of all clots. Hysterotomy was investigated and found to be hemostatic. The fascia was reapproximated with 0 vircyl in a running fashion. The subcutaneous tissue was reapproximated with 3-0 Vicryl. The skin was closed with 4-0 monocryl. The surgical aides teacher helped with retraction during closures. SPONGE AND NEEDLE COUNTS: Correct x3. DRESSING: Aquacel ANTICOAGULATION: SCDs applied prior to Surgery Preop antibiotics given (see MAR). The patient was taken to recovery room having tolerated procedure well. Post-operative Condition: stable Disposition: PACU Aftercare: routine postop
[2024-01-31] MEDS: ONDANSETRON 4 MG/2 ML INJ IV (13:50)
[2024-01-31] MEDS: OXYCODONE IR 5 MG TABLET PO (16:21)
[2024-01-31] MEDS: KETOROLAC 30 MG/ML VIAL IV ×2 (17:13→23:13)
[2024-01-31] MEDS: hydrOXYzine 50 MG/ML INJ 25 MG IM (18:40)
[2024-02-01 03:39] VITALS: BP 117/70; PULSE 91; RESP 16; TEMP 37.4
[2024-02-01] MEDS: KETOROLAC 30 MG/ML VIAL IV (05:35)
[2024-02-01] MEDS: MAGNESIUM SULFATE 20 GM/500 ML IV.SOLN IV (05:37)
[2024-02-01 06:40] LABS: Add Manual Diff / Slide Review NO; Basophils Absolute Auto 0 /uL (0-100); Basophils Percent Auto 0.2 % (0-2); Eosinophils Absolute Auto 100 /uL (0-450); Eosinophils Percent Auto 0.7 % (2-4); Hemoglobin 9.8 g/dL (12.0-16.0); Lymphocytes Absolute Auto 1600 /uL (1100-4500); Lymphocytes Percent Auto 12.1 % (25-40); Mean Corpuscular HGB Conc 33.9 % (30-36); Mean Corpuscular Volume 91.5 fL (80-100); Monocytes Absolute Auto 1100 /uL (0-900); Monocytes Percent Auto 8.1 % (3-14); Neutrophils Absolute Auto 10500 /uL (1500-7000); Neutrophils Percent Auto 78.9 % (50-75); Platelet Count 170 X10^3/uL (150-400); Red Blood Cell Count 3.17 X10^6/uL (4.0-5.2); Red Cell Distribution Width 13.8 % (11.6-14.8); White Blood Cell Count 13.3 X10^3/uL (4.5-11.0)
[2024-02-01 06:54] LABS: Alanine Aminotransferase 11 IU/L (<35); Albumin 2.6 g/dL (3.5-5.0); Albumin Globulin Ratio 0.8 (1.0-2.8); Alkaline Phosphatase 177 U/L (38-126); Aspartate Aminotransferase 26 IU/L (14-36); BUN Creatinine Ratio 9.1 (6-22); Bilirubin Total 0.4 mg/dL (0.2-1.3); Blood Urea Nitrogen 4 mg/dL (7-17); Carbon Dioxide 25 mmol/L (22-32); Chloride 106 mmol/L (98-107); Estimated Glomerular Filt Rate > 60 mL/min (>60); Globulin 3.1 g/dL (1.7-4.1); Glucose 90 mg/dL (70-100); HEMOLYSIS 19 (0-50); Potassium 3.8 mmol/L (3.4-5.1); Sodium 132 mmol/L (137-145); Total Protein 5.7 g/dL (6.3-8.2)
[2024-02-01 06:56] LABS: Calcium 6.2 mg/dL (8.4-10.2)
[2024-02-01 07:00] VITALS: BP 117/70; PULSE 91; RESP 16; TEMP 37.4
[2024-02-01 07:18] LABS: Magnesium 6.5 mg/dL (1.6-2.3)
--- NOTE | 2024-02-01 09:26 | PM.OBPN.1 ---
Subjective - OB Subjective Interval history: The pt reports that overall she is feeling well. Her lochia has been appropriate. She is working on , having some difficulty with latching. She denies any nipple pain. She started using a nipple shield, which has helped. She denies any chest pain, SOB, worsening LE edema. She denies any headache, RUQ pain, vision changes. She has not yet ambulated or passed flatus. Her younger remains in place. Exam Vital Signs (past 8 hours): Oxygen Delivery Method Room Air Const General: healthy appearing and comfortable Resp Auscultation: clear to auscultation bilaterally Cardio Rate: regular rate Rhythm: regular rhythm Heart Sounds: S1 normal, S2 normal and no murmurs GI Inspection: non-distended and incision (dressing c/d/i) Palpation: soft, No guarding and tender (appropriately tender) Auscultation: normal bowel sounds Other: fundus firm and below the umbilicus Extrem Right upper extremity: no edema Objective Labs 02/01/24 06:18 02/01/24 06:18 Labs: Laboratory Results - last 24 hr 02/01/24 06:18 WBC 13.3 H RBC 3.17 L Hgb 9.8 L Hct 29.0 L MCV 91.5 MCH 31.0 MCHC 33.9 RDW 13.8 Plt Count 170 Neut % (Auto) 78.9 H Lymph % (Auto) 12.1 L [place] % (Auto) 8.1 Eos % (Auto) 0.7 L Baso % (Auto) 0.2 Neut # (Auto) 63997 H Lymph # (Auto) 1600 [place] # (Auto) 1100 H Eos # (Auto) 100 Baso # (Auto) 0 Sodium 132 L Potassium 3.8 Chloride 106 Carbon Dioxide 25 BUN 4 L Creatinine 0.44 L Estimated GFR > 60 BUN/Creatinine Ratio 9.1 Glucose 90 Calcium 6.2 L* Magnesium 6.5 H* Total Bilirubin 0.4 AST 26 ALT 11 Alkaline Phosphatase 177 H Total Protein 5.7 L Albumin 2.6 L Globulin 3.1 Albumin/Globulin Ratio 0.8 L Assessment & Plan Plan Comments: Pt is a 18yo POD#1 s/p primary for nonreassuring FHT and failure to progress in the setting of pre-eclampsia with severe features. Pt remains on MgSO4 for 24hrs . BPs have all been in good range thus far. - Continue MgSO4 until 10:39am, 24hr blake - Continue to monitor BPs closely, if rising elton need to initiate PO Labetalol - support, consultation today - Normal care Time-Based Coding :: 15 spent with patient and on the chart (including review of chart, obtaining history, exam, reviewing outside data, placing orders, documenting exam and treatment plan, and counseling patient) on 02/01/24.
[2024-02-01] MEDS: IBUPROFEN 600 MG TABLET PO ×3 (11:20→22:49)
[2024-02-01] MEDS: ACETAMINOPHEN 325 MG TABLET 650 MG PO ×3 (11:20→22:48)
[2024-02-01] MEDS: OXYCODONE IR 5 MG TABLET PO ×3 (11:21→22:50)
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
[2024-02-01] MEDS: LANOLIN OINT 7 GM 1 APPLIC TOP (20:39)
[2024-02-02] MEDS: IBUPROFEN 600 MG TABLET PO ×2 (06:24→12:17)
[2024-02-02] MEDS: ACETAMINOPHEN 325 MG TABLET 650 MG PO ×2 (06:24→12:16)
[2024-02-02] MEDS: PRENATAL VIT,CALC/IRON/FOLIC 1 TABLET 1 TAB PO (10:56)
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
[2024-02-02] MEDS: MEASLES,MUMPS,RUBELLA VACC/PF 0.5 ML VIAL SUBCUT (12:18)
== END 2024-02-02 13:01 | disposition home or self-care (01) | DRG 540 ==
PROVIDERS: Student in an Organized Health Care Education/Training Program; Admitting Provider Family Medicine; PCP Family Medicine; Referring Provider Family Medicine; Visit Provider Family Medicine
PROC: 10D00Z1 Extraction of Products of Conception, Low, Open Approach (ICD-10-PCS; CPT 59514; principal; 2024-01-31 10:00)
DX: O14.14 Severe pre-eclampsia complicating childbirth (principal); O76 Abnormality in fetal heart rate and rhythm complicating labor and delivery; O61.0 Failed medical induction of labor; O61.1 Failed instrumental induction of labor; Z37.0 Single live birth; Z3A.40 40 weeks gestation of pregnancy
CPT/HCPCS: 36415; 59050; 59200; 59514; 80053; 83735; 85025; 86850; 86900; 86901; G0379; J0136; J0690; J1100; J1885; J2274; J2405; J2590; J3010; J3410; J3475

== ENCOUNTER → 2024-03-12 14:35 | Outpatient (CLI) | payer OTHER, MEDICAID, SELFPAY ==
[2024-03-12 15:43] LABS: Add Manual Diff / Slide Review NO; Basophils Absolute Auto 0 /uL (0-100); Basophils Percent Auto 0.7 % (0-2); Eosinophils Absolute Auto 200 /uL (0-450); Eosinophils Percent Auto 3.3 % (2-4); Hematocrit 37.6 % (36-46); Hemoglobin 12.7 g/dL (12.0-16.0); Lymphocytes Absolute Auto 2300 /uL (1100-4500); Lymphocytes Percent Auto 31.2 % (25-40); Mean Corpuscular HGB Conc 33.8 % (30-36); Mean Corpuscular Hemoglobin 30.3 PG (26-34); Mean Corpuscular Volume 89.5 fL (80-100); Monocytes Absolute Auto 500 /uL (0-900); Monocytes Percent Auto 6.2 % (3-14); Neutrophils Absolute Auto 4300 /uL (1500-7000); Neutrophils Percent Auto 58.6 % (50-75); Platelet Count 313 X10^3/uL (150-400); White Blood Cell Count 7.3 X10^3/uL (4.5-11.0)
[2024-03-12 17:41] LABS: Ferritin 19 ng/mL (6-137)
[2024-03-12 18:33] LABS: HEMOLYSIS < 15 (0-50); Iron 85 ug/dL (37-170)
[2024-03-12 18:42] LABS: Percent Iron Saturation 24 % (15-50); Total Iron Binding Capacity 357 ug/dL (265-497)
[2024-03-12 20:14] LABS: Transferrin 286 mg/dL (206-381)
== END ==
PROVIDERS: PCP Family Medicine; Referring Provider Family Medicine; Visit Provider Family Medicine
DX: R42 Dizziness and giddiness (principal)
CPT/HCPCS: 36415; 82728; 83540; 83550; 85025

== ENCOUNTER → 2025-04-22 14:10 | Outpatient (CLI) | payer OTHER, SELFPAY ==
[2025-04-22 14:43] LABS: Hematocrit 38.5 % (36-46); Hemoglobin 13.1 g/dL (12.0-16.0); Mean Corpuscular HGB Conc 34.0 % (30-36); Mean Corpuscular Hemoglobin 29.8 PG (26-34); Mean Corpuscular Volume 87.7 fL (80-100); Platelet Count 290 X10^3/uL (150-400)
[2025-04-22 15:38] LABS: Alanine Aminotransferase 24 IU/L (<35); Albumin 4.1 g/dL (3.5-5.0); Albumin Globulin Ratio 1.2 (1.0-2.8); Alkaline Phosphatase 85 U/L (38-126); Blood Urea Nitrogen 9 mg/dL (7-17); Calcium 9.3 mg/dL (8.4-10.2); Carbon Dioxide 24 mmol/L (22-32); Chloride 107 mmol/L (98-107); Estimated Glomerular Filt Rate > 60 mL/min (>60); Globulin 3.4 g/dL (1.7-4.1); Glucose 105 mg/dL (70-99); HEMOLYSIS 22 (0-50); Potassium 3.9 mmol/L (3.4-5.1); Sodium 137 mmol/L (137-145); Total Protein 7.5 g/dL (6.3-8.2)
[2025-04-22 15:54] LABS: HCG Quantitative /Beta subunit < 2.39 mIU/mL
[2025-04-22 16:06] LABS: TSH w/ Reflex to FT4 1.07 uIU/mL (0.47-4.68)
== END ==
PROVIDERS: PCP Family Medicine; Referring Provider Family Medicine; Visit Provider Family Medicine
DX: Z32.00 Encounter for pregnancy test, result unknown (principal); R11.0 Nausea; R63.39 Other feeding difficulties; G44.309 Post-traumatic headache, unspecified, not intractable; S09.90XS Unspecified injury of head, sequela; R53.83 Other fatigue
CPT/HCPCS: 36415; 80053; 84443; 84702; 85027